=== PATIENT | female | born 1965 | race Caucasian/White ===

== ENCOUNTER 2017-12-22 11:17 | Outpatient (CLI) | payer OTHER ==
[2016-02-13 11:02] VITALS: BMI 42.0
--- NOTE | 2017-12-22 11:34 | DI ---
EXAM: Two views of the left elbow. History: Left elbow pain. Findings: No acute fracture or dislocation. No abnormal calcifications or radiopaque foreign bodies . Mild to moderate narrowing of the left elbow joint. Tiny olecranon enthesiophyte Impression: 1. No acute osseous abnormality. 2. 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
== END 2017-12-22 11:18 | disposition home or self-care (01) ==
LOC: RAD 11:17
PROVIDERS: ATTEND Family Medicine
DX: M25.522 Pain in left elbow (principal); M77.10 Lateral epicondylitis, unspecified elbow

== ENCOUNTER 2017-12-25 12:23 | Outpatient (CLI) ==
[2016-02-13 11:02] VITALS: BMI 42.0
--- NOTE | 2017-12-27 09:07 | MAMMO ---
EXAM: Bilateral digital screening mammogram (2-D and 3-D) History: Baseline screening Findings: MLO and CC views of bilateral breasts demonstrate scattered fibroglandular breast parenchy ma. CAD was reviewed by the radiologist. Tomosynthesis was performed. There are no dominant masses , no suspicious microcalcifications and no architectural distortions Impression: Negative mammogram. Recommend followup routine screening mammography in 1 year. BIRADS 1
== END 2017-12-25 12:24 | disposition home or self-care (01) ==
LOC: RAD 12:23
PROVIDERS: ATTEND Family Medicine
DX: Z12.31 Encounter for screening mammogram for malignant neoplasm of breast (principal)
CPT/HCPCS: 77067

== ENCOUNTER 2018-01-24 15:18 | Outpatient (CLI) ==
[2016-02-13 11:02] VITALS: BMI 42.0
== END 2018-01-24 15:19 | disposition home or self-care (01) ==
LOC: CAR 15:18
PROVIDERS: ATTEND Family Medicine
DX: G47.33 Obstructive sleep apnea (adult) (pediatric) (principal)

== ENCOUNTER 2018-02-13 16:08 | Outpatient (CLI) ==
[2016-02-13 11:02] VITALS: BMI 42.0
== END 2018-02-13 16:09 | disposition home or self-care (01) ==
LOC: CAR 16:08
PROVIDERS: ATTEND Psychiatry & Neurology Sleep Medicine
DX: G47.33 Obstructive sleep apnea (adult) (pediatric) (principal)
CPT/HCPCS: 95811

== ENCOUNTER 2019-01-05 13:40 | Emergency (ER) | payer OTHER ==
[2019-01-05 13:49] VITALS: BP 145/90; TEMP 98.9; BMI 46.2
[2019-01-05] MEDS ORDERED: DECADRON 4 MG/ML SDV IM STA (14:32)
--- NOTE | 2019-01-05 14:35 | ED.PDOC ---
General ED Provider: Dr. SHAY DUNBAR Chief Complaint: Rash Stated Complaint: rash Time Seen by Physician: 13:49 (seen with her nurse ) Mode of Arrival: Walk-In Information Source: Patient Exam Limitations: No limitations Primary Care Provider: TALHA WOODWARD Nursing and Triage Documentation Reviewed and Agree: Yes Does patient meet sepsis criteria?: No System Inflammatory Response Syndrome: Not Applicable Sepsis Protocol: For patient's 13 years and over: Temp is 96.8 and below OR 101 and greater Pulse >90 BPM Resp >20/minute Acutely Altered Mental Status Are patient's symptoms suggestive of a new infection, such as: -Pneumonia -Skin, Soft Tissue -Endocarditis -UTI -Bone, Joint Infection -Implantable Device -Acute Abdominal Infection -Wound Infection -Meningitis -Blood Stream Catheter Infection -Unknown Skin Complaint Exam - Skin Rash/Itching Complaint/Exam Onset/Duration: 1 day Symptoms Are: Still present Initial Severity: Mild Current Severity: Mild Potential Exposures: Reports: Plants Aggravating: Reports: None Alleviating: Reports: None Associated Signs and Symptoms: Denies: Difficulty breathing, Fever, Chills Skin Findings: Present: Vesicles Differential Diagnoses: Poison Lakshmi/Coolidge Review of Systems - Review Of Systems Constitutional: Reports: No symptoms Eyes: Reports: No symptoms Ears, Nose, Mouth, Throat: Reports: No symptoms Respiratory: Reports: No symptoms Cardiac: Reports: No symptoms GI: Reports: No symptoms : Reports: No symptoms Musculoskeletal: Reports: No symptoms Skin: Reports: Rash (vesicular right ext) Neurological: Reports: No symptoms Endocrine: Reports: No symptoms Hematologic/Lymphatic: Reports: No symptoms All Other Systems: Reviewed and Negative Past Medical History - Past Medical History Previously Healthy: Yes Endocrine: Reports: None Cardiovascular: Reports: Hypertension Respiratory: Reports: None Hematological: Reports: None Gastrointestinal: Reports: None Genitourinary: Reports: None Neuro/Psych: Reports: Depression Musculoskeletal: Reports: Joint Pain Cancer: Reports: None Last Menstrual Period: HAS HAD A HYSTERECTOMY - Surgical History General Surgical History: Reports: , Tonsillectomy, Orthopedic - Family History Family History: Reports: None - Social History Smoking Status: Never smoker Hx Substance Use: No Alcohol Screening: None - Immunizations Tetanus Shot up to Date: Yes Physical Exam - Physical Exam Appearance: Well-appearing, No pain distress, Well-nourished Eyes: MATEO, EOMI, Conjunctiva clear ENT: Ears normal, Nose normal, Oropharynx normal Respiratory: Airway patent, Breath sounds clear, Breath sounds equal, Respirations nonlabored Cardiovascular: RRR, Pulses normal, No rub, No murmur GI/: Soft, Nontender, No masses, Bowel sounds normal, No Organomegaly Musculoskeletal: Normal strength, ROM intact, No edema, No calf tenderness Skin: Warm, Dry (rash see photos) Neurological: Sensation intact, Motor intact, Reflexes intact, Cranial nerves intact, Alert, Oriented Psychiatric: Affect appropriate, Mood appropriate Critical Care Note - Critical Care Note Total Time (mins): 0 Course - Course Orders, Labs, Meds: Orders Category Date Time Status Dexamethasone 4 mg/ml Inj [Decadron 4 mg/ml Sdv] MEDS 01/05/19 14:32 Stat 4 mg IM ONCE STA Medications Generic Name Dose Route Start Last Admin Trade Name Freq PRN Reason Stop Dose Admin Dexamethasone Sodium Phosphate 4 mg 01/05/19 14:32 Decadron 4 Mg/Ml Sdv IM 01/05/19 14:33 ONCE STA Vital Signs: Temp Pulse Resp BP Pulse Ox 01/05/19 13:41 98.9 F 82 20 145/90 H 98 Departure - Departure Time of Disposition: 14:35 Disposition: HOME SELF-CARE Discharge Problem: Pruritic rash, Poison lakshmi Instructions: Poison Lakshmi (ED) Condition: Good Pt referred to PMD for follow-up: Yes IPMP verified?: No Additional Instructions: Please call your Family Physician as soon as possible to schedule a follow-up appointment. Allergies/Adverse Reactions: Allergies polyethylene glycol [From Golytely] Adverse Reaction (Verified 01/05/19 13:49) polyethylene glycol 3350 [From Golytely] Adverse Reaction (Verified 01/05/19 13: 49) potassium chloride [From Golytely] Adverse Reaction (Verified 01/05/19 13:49) sodium [From Golytely] Adverse Reaction (Verified 01/05/19 13:49) sodium bicarbonate [From Golytely] Adverse Reaction (Verified 01/05/19 13:49) sodium chloride [From Golytely] Adverse Reaction (Verified 01/05/19 13:49) sodium sulfate [From Golytely] Adverse Reaction (Verified 01/05/19 13:49) Sulfa (Sulfonamide Antibiotics) Adverse Reaction (Verified 01/05/19 13:49) aspertaime Adverse Reaction (Uncoded 01/05/19 13:49) Home Medications: Ambulatory Orders Bupropion HCl [Bupropion HCl Sr] 150 mg PO TID 05/02/15 Loratadine 10 mg PO BID 05/02/15 Albuterol Sulfate [Proventil Hfa] 6.7 gm IH BID PRN 01/19/18 Baclofen 10 mg PO TID 01/19/18 Cranberry Fruit Extract [Cranberry] 500 mg PO BID 01/19/18 Fluticasone Propionate [Flovent Diskus] 250 mcg IH BID 01/19/18 Nitroglycerin 0.4 mg SL DIRECTED PRN 01/19/18 Pantoprazole Sodium [Protonix] 40 mg PO DAILY 01/19/18 Zolpidem Tartrate [Ambien] 10 mg PO BEDTIME 01/19/18 Calcium Carb/D3/Magnesium/Zinc [Sv Burntny-Eho-Tblm-Vit D Cplt] 2 each PO BID Calcium Carbonate/Vitamin D3 [Calcium 600 + Vit D Caplet] 1 each PO BID Potassium Gluconate [Potassium] 600 mg PO BID 01/05/19
== END 2019-01-05 14:58 | disposition home or self-care (01) ==
LOC: ED 13:40
DX: L23.7 Allergic contact dermatitis due to plants, except food (principal)
CPT/HCPCS: 96372; 99282

== ENCOUNTER 2024-06-07 11:29 | Observation (INO) ==
--- NOTE | 2024-06-07 11:40 | ED.PDOC ---
General ED Provider: Dr. KELY RAMIREZ MD Chief Complaint: Shortness of Air Stated Complaint: Patient is a 59-year-old female that reported to the emergency department via EMS for shortness of breath and a cough x 3 days. Patient stated that she is also had a fever of 102 Fahrenheit with the symptoms. Patient stated that she has been coughing so much that she has had blood-tinged yellowish sputum. Patient stated that she does have a history of COPD. Patient stated that she has not been around any other sick contacts. Patient stated that she is also had some nausea and vomiting with her symptoms. Patient stated that she has not traveled outside the country. Patient stated that she has had the similar symptoms before and had bacterial pneumonia. Patient stated that she has not been seen by a primary care physician for these current symptoms. Patient stated that she is not currently on home O2. Patient denied anything making her symptoms worse or better. Patient did however state that [id number] Tylenol has helped with her fever. Patient denies any other acute symptoms not currently mentioned in the HPI. Patient has past medical history of COPD, hypertension, morbid obesity. Patient's vital signs are blood pressure 130/79, heart rate 120, respiratory rate 22, temperature 99.2 F, O2 on 2 L nasal cannula is 97%. Patient's GCS is 15. Time Seen by Provider: 06/07/24 11:36 Mode of Arrival: Ambulance Information Source: Patient and EMT Exam Limitations: No limitations Primary Care Provider: TALHA WOODWARD Nursing and Triage Documentation Reviewed and Agree: Yes Does Patient Take Opioids?: No Is Patient Opioid Naive?: No What is Opioid Naive?: *Opioid Naive implies the patient is not already taking opioids or not chronically receiving opioids on a daily basis. *PRN dosing is not "usually" associated with tolerance. *Patients are at higher risk of over-sedation and aspiration. Is Patient Opioid Tolerant?: No What is Opioid Tolerant?: *Opioid Tolerance implies less than the expected response to an opioid. *Acquired tolerance is defined by the patient taking 60mg of oral morphine daily (or equianalgesic dose of another opioid) for 1 week or more. *Often associated with chronic pain. *May take more than usual dose to achieve desired pain control. Review of Systems Review Of Systems Constitutional: Reports No symptoms Eyes: Reports No symptoms Ears, Nose, Mouth, Throat: Reports No symptoms Respiratory: Reports Cough and Shortness of Breath Cardiac: Reports No symptoms GI: Reports No symptoms : Reports No symptoms Musculoskeletal: Reports No symptoms Skin: Reports No symptoms Neurological: Reports No symptoms Endocrine: Reports No symptoms Hematologic/Lymphatic: Reports No symptoms All Other Systems: Reviewed and Negative [facility] Social History Smoking and tobacco status: Never smoker Alcohol intake: never Substance use type: does not use Surgical History 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 (ICD-10) Status post bariatric surgery Z98.84 - Bariatric surgery status (ICD-10) Female Reproductive History Menstrual Hx Hysterectomy: Yes Hx Tubal Ligation: No Physical Exam Physical Exam Appearance: Reports Well-appearing, No pain distress and Well-nourished Ill-appearing: None Pain Distress: None Eyes: Reports MATEO, EOMI and Conjunctiva clear ENT: Reports Nose normal and Oropharynx normal Neck: Supple Respiratory: Reports Airway patent, Breath sounds equal, Breath sounds diminished (Breath sounds diminished bilaterally in the lower lung klein.) and Respirations nonlabored Cardiovascular: Reports Pulses normal, No rub, No murmur and Tachycardia (Patient slightly tachycardic with an apical pulse of 115 bpm.) GI/: Reports Soft, Nontender, No masses, Bowel sounds normal and No Organomegaly Musculoskeletal: Reports Normal strength, ROM intact and No edema Skin: Reports Warm, Dry and Normal color Neurological: Reports Sensation intact, Motor intact, Cranial nerves intact, Alert and Oriented Psychiatric: Reports Affect appropriate and Mood appropriate Course Course 06/07/24 12:07 06/07/24 12:07 Orders, Labs, Meds: Lab Review 06/07/24 06/07/24 06/07/24 12:07 12:10 12:28 WBC 15.10 H RBC 3.83 L Hgb 10.0 L Hct 33.7 L MCV 88.0 MCH 26.1 L MCHC 29.7 L RDW Coeff of Earnestine 15.3 H Plt Count 265 Immature Gran % (Auto) 0.7 Neut % (Auto) 90.1 H Lymph % (Auto) 3.8 L [place] % (Auto) 4.5 Eos % (Auto) 0.8 Baso % (Auto) 0.1 Neut # (Auto) 13.6 H Lymph # (Auto) 0.6 [place] # (Auto) 0.7 Eos # (Auto) 0.1 Baso # (Auto) 0.0 Immature Gran # (Auto) 0.1 ESR 16 PT 10.1 INR 0.97 VBG pH 7.43 H VBG pCO2 41 VBG pO2 27 L VBG HCO3 27.2 H VBG O2 Saturation 52.7 L Sodium 140.1 Potassium 4.80 Chloride 105.4 Carbon Dioxide 26.6 Anion Gap 12.90 BUN 16.4 Creatinine 0.83 Estimated GFR (MDRD) 70.00 BUN/Creatinine Ratio 19.75 Glucose 114.2 H Lactic Acid 1.67 Calcium 8.31 L Total Bilirubin 0.49 AST 48.3 H ALT 33.5 Alkaline Phosphatase 90.7 Troponin I < 0.012 Total Protein 6.15 L Albumin 3.70 Globulin 2.45 Albumin/Globulin Ratio 1.51 Procalcitonin 0.08 D-Dimer 1550.07 H Urine Color Urine Clarity Urine pH Ur Specific Lamont Urine Protein Urine Glucose (UA) Urine Ketones Urine Blood Urine Nitrite Urine Bilirubin Urine Urobilinogen Ur Leukocyte Esterase Influ A Molecular Assay Negative by naat Influ B Molecular Assay Negative by naat RSV Antigen Negative by naat SARS CoV-2 RNA Rapid ADENIKE Negative 06/07/24 13:15 WBC RBC Hgb Hct MCV MCH MCHC RDW Coeff of Earnestine Plt Count Immature Gran % (Auto) Neut % (Auto) Lymph % (Auto) [place] % (Auto) Eos % (Auto) Baso % (Auto) Neut # (Auto) Lymph # (Auto) [place] # (Auto) Eos # (Auto) Baso # (Auto) Immature Gran # (Auto) ESR PT INR VBG pH VBG pCO2 VBG pO2 VBG HCO3 VBG O2 Saturation Sodium Potassium Chloride Carbon Dioxide Anion Gap BUN Creatinine Estimated GFR (MDRD) BUN/Creatinine Ratio Glucose Lactic Acid Calcium Total Bilirubin AST ALT Alkaline Phosphatase Troponin I Total Protein Albumin Globulin Albumin/Globulin Ratio Procalcitonin D-Dimer Urine Color Yellow Urine Clarity Clear Urine pH 5.5 Ur Specific Lamont >=1.030 Urine Protein Negative Urine Glucose (UA) Negative Urine Ketones Negative Urine Blood Negative Urine Nitrite Negative Urine Bilirubin Negative Urine Urobilinogen 0.2 Ur Leukocyte Esterase Negative Influ A Molecular Assay Influ B Molecular Assay RSV Antigen SARS CoV-2 RNA Rapid ADENIKE Orders Category Date Time Status EKG-(ED ONLY) Stat CARDIO 06/07/24 11:44 Completed NEBULIZER TREATMENT Stat CARDIO 06/07/24 11:40 Completed NPO REMINDER: IMAGING ONCE CARE 06/07/24 13:08 Completed ED APPLY O2 .ONCE EMERGENCY 06/07/24 11:37 Active ED DOOR ASSEMBLER APPLIED .ONCE EMERGENCY 06/07/24 11:37 Active ED IV/MEDIPORT/POWERPORT .ONCE EMERGENCY 06/07/24 11:37 Active ED VITAL SIGNS .ONCE EMERGENCY 06/07/24 11:37 Active BLOOD CULTURE (ED ONLY) Stat LAB 06/07/24 12:42 Received C-REACTIVE PROTEIN Stat LAB 06/07/24 12:07 Received CBC W/ AUTO DIFF Stat LAB 06/07/24 12:07 Completed COMPREHENSIVE METABOLIC PANEL Stat LAB 06/07/24 12:07 Completed D-DIMER Stat LAB 06/07/24 12:07 Completed ESR Stat LAB 06/07/24 12:07 Completed FLU A/B MOLECULAR Stat LAB 06/07/24 12:10 Completed LACTIC ACID Stat LAB 06/07/24 12:07 Completed MRSA SCREEN Routine LAB 06/07/24 12:10 Received PROCALCITONIN Stat LAB 06/07/24 12:07 Completed PT WITH INR Stat LAB 06/07/24 12:07 Completed RSV Stat LAB 06/07/24 12:10 Completed SARS COV-2 RNA RAPID ADENIKE Stat LAB 06/07/24 12:10 Completed SPUTUM CULTURE Stat LAB 06/07/24 12:48 Received TROPONIN I Stat LAB 06/07/24 12:07 Completed URINALYSIS C & S IF INDICATED Stat LAB 06/07/24 13:15 Completed VBG [VENOUS BLOOD GAS] Stat LAB 06/07/24 12:28 Completed 0.9 % Sodium Chloride [Saline Flush] Meds 06/07/24 11:36 Active 1 syr IVF PRN PRN Iohexol [Omnipaque 350 mg/ml 100Ml] Meds 06/07/24 13:41 Discontinued 100 ml IVP ONCE ONE Ipratropium/Albuterol Neb [Duoneb] Meds 06/07/24 11:40 Discontinued 3 ml NEB ONCE STA Methylprednisolone Sod Succ/Pf [Solu-Medrol 125 mg] Meds 06/07/24 11:40 Discontinued 125 mg IVP ONCE ONE Piperacillin Sodium/Tazobactam [Zosyn 4.5 gm] 4.5 gm Meds 06/07/24 12:48 Discontinued 0.9 % Sodium Chloride [Sodium Chloride 100Ml] 100 ml IV ONCE Sodium Chloride 0.9% [Sodium Chloride] 1,000 ml Meds 06/07/24 11:36 Discontinued IV BOLUS Vancomycin/Water For Inj (Peg) [Vancomycin 1.5 Gram/300 Meds 06/07/24 12:48 Discontinued ml Premix] 1.5 gm in 300 ml IV ONCE CHEST, 1V AP ONLY Stat RADS 06/07/24 11:36 Completed CTA CHEST PE PROTOCOL Stat RADS 06/07/24 13:08 Completed Medications Generic Name Dose Route Start Last Admin Trade Name Freq PRN Reason Stop Dose Admin Sodium Chloride 1 syr 06/07/24 11:36 0.9% Sodium Chloride 10 Ml Disp.Syrin IVF PRN PRN To flush IV Discontinued Medications Generic Name Dose Route Start Last Admin Trade Name Freq PRN Reason Stop Dose Admin Albuterol/Ipratropium 3 ml 06/07/24 11:40 06/07/24 12:32 Ipratropium/Albuterol Vial.Neb NEB 06/07/24 11:41 3 ml ONCE STA Administration Sodium Chloride 1,000 mls @ 1,000 mls/hr 06/07/24 11:36 06/07/24 12:02 Sodium Chloride IV 06/07/24 12:35 1,000 mls/hr BOLUS ONE Administration VANCOMYCIN/WATER FOR INJ (PEG) 1.5 gm in 300 mls @ 200 mls/hr 06/07/24 12:48 06/07/24 14:29 Vancomycin 1.5 Gram/300 Ml Premix IV 06/07/24 14:17 200 mls/hr ONCE ONE Administration Piperacillin Sod/Tazobactam 100 mls @ 200 mls/hr 06/07/24 12:48 06/07/24 13:06 Sod 4.5 gm/ Sodium Chloride IV 06/07/24 13:17 200 mls/hr ONCE ONE Administration Iohexol 100 ml 06/07/24 13:41 06/07/24 13:52 Iohexol 350 Mg/Ml 100ml IVP 06/07/24 13:42 100 ml ONCE ONE Administration Methylprednisolone Sodium Succinate 125 mg 06/07/24 11:40 06/07/24 12:03 Methylprednisolone Sod Succ/Pf 125 Mg/2 Ml Vial IVP 06/07/24 11:41 125 mg ONCE ONE Administration Vital Signs: Temp Pulse Resp BP Pulse Ox O2 Flow Rate 06/07/24 13:31 104 H 18 135/77 95 2 06/07/24 12:14 2 06/07/24 11:31 99.2 F 115 H 17 130/79 97 Discharge Plan Discharge Patient Disposition: PLACED OBSERVATION Discharge Problem: Acute hypoxemic respiratory failure, Acute exacerbation of chronic obstructive pulmonary disease (COPD) Sepsis Qualifiers: Sepsis type: sepsis due to unspecified organism Sepsis acute organ dysfunction status: with acute organ dysfunction Severe sepsis acute organ dysfunction type: acute respiratory failure Acute respiratory failure type: with hypoxia Severe sepsis shock status: without septic shock Qualified Code(s): A41.9 - Sepsis, unspecified organism Bilateral pneumonia Qualifiers: Pneumonia type: due to unspecified organism Lung location: lower lobe of lung Q ualified Code(s): J18.9 - Pneumonia, unspecified organism Did you review [place] [employer] for ALL controlled substances?: Not Applicable ED Provider: KELY RAMIREZ Condition: Stable Physician Progress Note: Patient is a 59-year-old female that reported to the emergency department via EMS for shortness of breath and a cough x 3 days. Patient stated that she is also had a fever of 102 Fahrenheit with the symptoms. Patient stated that she has been coughing so much that she has had blood-tinged yellowish sputum. Patient stated that she does have a history of COPD. Patient stated that she has not been around any other sick contacts. Patient stated that she is also had some nausea and vomiting with her symptoms. Patient stated that she has not traveled outside the country. Patient stated that she has had the similar symptoms before and had bacterial pneumonia. Patient stated that she has not been seen by a primary care physician for these current symptoms. Patient stated that she is not currently on home O2. Patient denied anything making her symptoms worse or better. Patient did however state that [id number] Tylenol has helped with her fever. Patient denies any other acute symptoms not currently mentioned in the HPI. Patient has past medical history of COPD, hypertension, morbid obesity. Patient's vital signs are blood pressure 130/79, heart rate 120, respiratory rate 22, temperature 99.2 F, O2 on 2 L nasal cannula is 97%. Patient's GCS is 15. -Will order chest x-ray, baseline labs, DuoNeb treatment, IV normal saline 1 L bolus for dehydration, IV methylprednisolone 125 mg. -Will continue oxygen 2 L nasal cannula to keep patient's O2 sat above 94%. -EKG shows sinus tachycardia with a rate of 808 bpm. Normal axis noted. No acute ST elevations noted. This was interpreted by the ER physician. -Staff was unable to get an ABG so they obtained an VBG which showed a pH of 7.43, pCO2 41, pO2 27, and bicarb 27.2. -CMP is unremarkable. CBC shows patient has a 15,000 white count. -Patient has a 1500 D-dimer. Will order CTA PE protocol to rule out pulmonary embolism. -Chest x-ray shows a right sided lower lobe pneumonia. Possible left lobe pneumonia. This was interpreted by the ER physician. -Will treat patient's pneumonia with IV vancomycin 1.5 g and IV Zosyn 4.5 g. -Spoke to Forrest May NP who is the hospitalist here at [facility] about admitting this patient for COPD exacerbation with community- acquired pneumonia. I gave her the current lab values, radiograph findings, and treatment to current time. She agrees to admit the patient after the D-dimer comes back in case the patient needs a CTA chest to rule out PE. -CTA of the chest shows No evidence of central pulmonary embolism as described. Limited visualization of the segmental and subsegmental pulmonary arteries secondary to motion artifact and small peripheral pulmonary emboli cannot be excluded. Bilateral pneumonia. Cardiomegaly. -Patient will be admitted to the hospital for observation. At time of admission patient is stable.
[2024-06-07] MEDS: SODIUM CHLORIDE 1,000 ML IV ONE (12:02)
[2024-06-07] MEDS: SOLU-MEDROL 125 MG IVP ONE (12:03)
[2024-06-07 12:29] LABS: ALANINE AMINOTRANSFERASE 33.5 U/L (0-35); ALKALINE PHOSPHATASE 90.7 U/L (53-141); ASPARTATE AMINO TRANSFERASE 48.3 U/L (14-36); BILIRUBIN,TOTAL 0.49 mg/dL (0.2-1.3); BLOOD UREA NITROGEN 16.4 mg/dL (7-17); CALCIUM 8.31 mg/dL (8.4-10.2); CARBON DIOXIDE 26.6 mmol/L (22-30.0); CHLORIDE 105.4 mmol/L (98-107); CREATININE 0.83 mg/dL (0.60-1.30); GLUCOSE 114.2 mg/dL (74-106); SODIUM 140.1 mmol/L (134.5-145); TOTAL PROTEIN 6.15 g/dL (6.3-8.2)
[2024-06-07 12:31] LABS: BASOPHILS % (AUTO) 0.1 % (0.0-3.0); EOSINOPHILS # (AUTO) 0.1 K/ul (0.0-0.7); EOSINOPHILS % (AUTO) 0.8 % (0.0-7.0); HEMATOCRIT 33.7 % (37.0-47.0); IMMATURE GRANULOCYTE # (AUTO) 0.1 (0.0-1.0); IMMATURE GRANULOCYTE % (AUTO) 0.7 % (0.0-5.0); LYMPHOCYTES # (AUTO) 0.6 K/uL (0.60-3.4); LYMPHOCYTES % (AUTO) 3.8 (10.0-50.0); MEAN CORPUSCULAR HEMOGLOBIN 26.1 pg (27.0-31.0); MEAN CORPUSCULAR HGB CONC 29.7 (31.8-35.4); MONOCYTES # (AUTO) 0.7 K/uL (0.4-2.0); MONOCYTES % (AUTO) 4.5 (0-10); NEUTROPHILS # (AUTO) 13.6 K/ul (2.0-6.9); NEUTROPHILS % (AUTO) 90.1 % (42.2-75.2); PLATELET COUNT 265 10^3/uL (140-440); RDW COEFFICIENT OF VARIATION 15.3 % (11.6-14.8); RED BLOOD COUNT 3.83 10^6/ul (4.20-5.40)
[2024-06-07] MEDS: DUONEB NEB STA (12:32)
[2024-06-07 12:33] LABS: PROTHROMBIN TIME 10.1 SEC (9.3-11.0)
[2024-06-07 12:42] LABS: MOLECULAR FLU A NEGATIVE BY NAAT (NEGATIVE); MOLECULAR FLU B NEGATIVE BY NAAT (NEGATIVE); RSV MOLECULAR NEGATIVE BY NAAT (NEGATIVE); SARS COV-2 RNA RAPID NAAT NEGATIVE (NEGATIVE)
[2024-06-07 12:42] LABS: TROPONIN I < 0.012 ng/ml (0.0000-0.120)
[2024-06-07 13:00] LABS: VBG PH 7.43 (7.30-7.40)
[2024-06-07 13:01] LABS: VBG HCO3 27.2 (22-26); VBG OXYGEN SATURATION 52.7 (60-80)
[2024-06-07] MEDS: ZOSYN 4.5 GM 4.5 GM in SODIUM CHLORIDE 100ML 100 ML IV ONE (13:06)
--- NOTE | 2024-06-07 13:10 | DI ---
EXAM: CHEST ONE-VIEW HISTORY: Shortness of breath COMPARISON: AP chest from 06/07/2021 FINDINGS: The heart size is prominent. The pulmonary vasculature is accentuated there are interst itial and alveolar opacities in the right upper lobe and both lower lobes. No pneumothoraces or pleu ral effusions. ACDF is noted. IMPRESSION: 1. Multifocal pneumonia versus pulmonary edema. 2. Cardiomegaly. .
[2024-06-07 13:34] LABS: BILIRUBIN,URINE Negative (NEGATIVE); CLARITY,URINE Clear (CLEAR); COLOR,URINE Yellow (YELLOW); GLUCOSE, URINE (UA) Negative (NEGATIVE); KETONES,URINE Negative (NEGATIVE); LEUKOCYTE ESTERASE ,URINE Negative (NEGATIVE); NITRITE,URINE Negative (NEGATIVE); PH,URINE 5.5 (5-9); PROTEIN,URINE Negative (NEGATIVE); URINE, BLOOD Negative (NEGATIVE); UROBILINOGEN,URINE 0.2 (0.2)
[2024-06-07] MEDS: OMNIPAQUE 350 MG/ML 100ML IVP ONE (13:52)
[2024-06-07 14:18] LABS: ERYTHROCYTE SEDIMENTATION RATE 16 mm/hr (0-20)
[2024-06-07] MEDS: VANCOMYCIN 1.5 GRAM/300 ML PREMIX 1.5 GM/300 ML BAG IV ONE (14:29)
--- NOTE | 2024-06-07 14:46 | CT ---
EXAM: CT PULMONARY ANGIOGRAM WITH IV CONTRAST. HISTORY: Shortness of breath with elevated D-dimer. PROCEDURE: After the intravenous injection of contrast a CT pulmonary angiogram was performed with c ontiguous axial CT images of the chest with multiplaner reformats, MIP images and 3-D reformats. COMPARISON: CT chest of 10/31/2023. FINDINGS: There is motion artifact which limits the exam. There is normal enhancement of the pulmon dana trunk, main right and left pulmonary arteries and lobar pulmonary arteries. There is limited vis ualization of the segmental and subsegmental pulmonary arteries secondary to motion artifact and smal l peripheral pulmonary emboli cannot be excluded. The heart is enlarged. The thoracic aorta is with in normal limits in size. There are diffuse infiltrates and patchy areas of consolidation, consisten t with pneumonia. There are degenerative changes in the spine. Impression: No evidence of central pulmonary embolism as described. Limited visualization of the seg mental and subsegmental pulmonary arteries secondary to motion artifact and small peripheral pulmonar y emboli cannot be excluded. Bilateral pneumonia as described. Cardiomegaly. All CT scans are performed using dose optimization techniques as appropriate to the performed exam an d include at least one of the following: Automated exposure control, adjustment of the mA and/or kV according t o size, and the use of iterative reconstruction technique.
[2024-06-07] MEDS: TYLENOL PO STA (14:56)
--- NOTE | 2024-06-07 16:21 | PCM ---
Date of Service Date Seen by Provider: 06/07/24 Time Seen by Provider: 16:10 Admit Day/Time Admission Date: 06/07/24 Reason for Admission Chief Complaint: ACUTE HYPOXEMIC RESP FAILURE,SEPSIS,BILATREAL Hospital Provider Hospital Provider: CLARISSE DANG MD, [facility] Primary Care Physician Primary Care Physician: TALHA WOODWARD History of Present Illness History of Present Illness: 59 yo female presented to the ER with complaints of weakness, fever, cough, and shortness of breath x 3 days. Has pmh of asthma, htn, gerd, anxiety/depression. States that she has had a fever as high as 102 and can't seem to get better. Cough is productive with yellow-brown sputum. SOB is worse on exertion. O2 sat was in upper 80s in ER upon arrival, Placed on 2L and sat upper 90s now. Admitted to med/surg observation for bilateral pneumonia Case Discussed With Case Discussed With: Patient's case was discussed with the ER Physicians, Dr. Rodriguez. 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 (ICD-10) Status post bariatric surgery Z98.84 - Bariatric surgery status (ICD-10) Social History Smoking and tobacco status: Never smoker Alcohol intake: never Substance use type: does not use Allergies Allergies Allergy/AdvReac Type Severity Reaction Status Date / Time diphenhydramine AdvReac restless Verified 06/07/24 11:53 [From Benadryl] legs polyethylene glycol AdvReac Vomiting Verified 06/07/24 11:53 [From Golytely] polyethylene glycol 3350 AdvReac Vomiting Verified 06/07/24 11:53 [From Golytely] potassium chloride AdvReac Vomiting Verified 06/07/24 11:53 [From Golytely] sodium [From Golytely] AdvReac Vomiting Verified 06/07/24 11:53 sodium bicarbonate AdvReac Vomiting Verified 06/07/24 11:53 [From Golytely] sodium chloride AdvReac Vomiting Verified 06/07/24 11:53 [From Golytely] sodium sulfate AdvReac Vomiting Verified 06/07/24 11:53 [From Golytely] Sulfa (Sulfonamide AdvReac Verified 06/07/24 11:53 Antibiotics) aspertaime AdvReac Uncoded 06/07/24 11:53 Current Medications Home Medications bupropion HCl (smoking deter) 150 mg tablet,12 hr sustained-release(smoking deterrent) 150 mg PO TID 05/02/15 [History Confirmed 06/07/24 Last Taken 05/02/15] albuterol sulfate 90 mcg/actuation aerosol inhaler (Proventil HFA) 6.7 g inhalation BID PRN WHEEZING /SOB 01/19/18 [History Confirmed 06/07/24 Last Taken Unknown] pantoprazole 40 mg tablet,delayed release (Protonix) 40 mg PO DAILY 01/19/18 [History Confirmed 06/07/24 Last Taken Unknown] calcium 600 mg (as carbonate)-vitamin D3 10 mcg (400 unit) tablet 1 ea PO BID 01/05/19 [History Confirmed 06/07/24 Last Taken Unknown] gabapentin 300 mg capsule 800 mg PO QID 06/07/21 [History Confirmed 06/07/24 Last Taken Unknown] meloxicam 7.5 mg tablet 7.5 mg PO DAILY 06/07/21 [History Confirmed 06/07/24 Last Taken Unknown] potassium chloride 10 mEq capsule,extended release 20 meq PO DAILY 06/07/21 [History Confirmed 06/07/24 Last Taken Unknown] bupropion HCl 150 mg tablet,12 hr sustained-release 150 mg PO TID 10/31/23 [Hist ory Confirmed 06/07/24 Last Taken Unknown] buspirone 10 mg tablet 10 mg PO DAILY 10/31/23 [History Confirmed 06/07/24 Last Taken Unknown] duloxetine 60 mg capsule,delayed release 60 mg PO DAILY 10/31/23 [History Confirmed 06/07/24 Last Taken Unknown] losartan 25 mg tablet 25 mg PO BEDTIME 10/31/23 [History Confirmed 06/07/24 Last Taken Unknown] oxycodone-acetaminophen 5 mg-325 mg tablet 1 tab PO TID 10/31/23 [History Confirmed 06/07/24 Last Taken Unknown] quetiapine 25 mg tablet 75 mg PO BEDTIME 10/31/23 [History Confirmed 06/07/24 Last Taken Unknown] diclofenac sodium 1 % topical gel 2 g topical QID #100 grams 01/14/24 [Rx Confirmed 06/07/24 Last Taken Unknown] bumetanide 1 mg tablet 1 mg PO BID 06/07/24 [History Confirmed 06/07/24 Last Taken Unknown] eszopiclone 2 mg tablet 2 mg PO BEDTIME 06/07/24 [History Confirmed 06/07/24 Last Taken Unknown] ferrous sulfate 325 mg (65 mg iron) tablet (Feosol) 325 mg PO BEDTIME 06/07/24 [History Confirmed 06/07/24 Last Taken Unknown] fluticasone furoate 100 mcg/actuation blister powder for inhalation (Arnuity Ellipta) 2 inh inhalation DAILY 06/07/24 [History Confirmed 06/07/24 Last Taken Unknown] fluticasone propionate 50 mcg/actuation nasal spray,suspension 1 spray intranasal DAILY 06/07/24 [History Confirmed 06/07/24 Last Taken Unknown] lidocaine 4 % topical patch (AsperFlex (lidocaine)) 1 patch topical DAILY PRN Pain to Right Should 06/07/24 [History Confirmed 06/07/24 Last Taken Unknown] montelukast 10 mg tablet 10 mg PO DAILY 06/07/24 [History Confirmed 06/07/24 Last Taken Unknown] quetiapine 50 mg tablet 50 mg PO BEDTIME 06/07/24 [History Confirmed 06/07/24 Last Taken Unknown] Home Acetaminophen (Acetaminophen 325 Mg Tablet) 650 mg PO Q4-6H PRN PRN Reason: Mild/Moderate Pain Albuterol Sulfate (Albuterol Sulfate 0.083% Vial.Neb) 2.5 mg NEB RTQ4H PRN PRN Reason: Wheezing Albuterol/Ipratropium (Ipratropium/Albuterol Vial.Neb) 3 ml NEB RTQ6H HELENA VANCOMYCIN/WATER FOR INJ (PEG) (Vancomycin 1.5 Gram/300 Ml Premix) 1.5 gm in 300 mls @ 200 mls/hr IV Q12HR HELENA Stop: 06/10/24 22:59 CEFEPIME 2 GM/D5W (Maxipime 2 Gm/50 Ml D5w) 2 gm in 50 mls @ 100 mls/hr IV Q8HR HELENA Stop: 06/10/24 20:59 Sodium Chloride (0.9% Sodium Chloride 10 Ml Disp.Syrin) 1 syr IVF PRN PRN PRN Reason: To flush IV Discontinued Medications Acetaminophen (Acetaminophen 500 Mg Tablet) 500 mg PO ONCE STA Stop: 06/07/24 14:50 Last Admin: 06/07/24 14:56 Dose: 500 mg Albuterol/Ipratropium (Ipratropium/Albuterol Vial.Neb) 3 ml NEB ONCE STA Stop: 06/07/24 11:41 Last Admin: 06/07/24 12:32 Dose: 3 ml Sodium Chloride (Sodium Chloride) 1,000 mls @ 1,000 mls/hr IV BOLUS ONE Stop: 06/07/24 12:35 Last Infusion: 06/07/24 13:02 Dose: Infused VANCOMYCIN/WATER FOR INJ (PEG) (Vancomycin 1.5 Gram/300 Ml Premix) 1.5 gm in 300 mls @ 200 mls/hr IV ONCE ONE Stop: 06/07/24 14:17 Last Admin: 06/07/24 14:29 Dose: 200 mls/hr Piperacillin Sod/Tazobactam (Sod 4.5 gm/ Sodium Chloride) 100 mls @ 200 mls/hr IV ONCE ONE Stop: 06/07/24 13:17 Last Admin: 06/07/24 13:06 Dose: 200 mls/hr Iohexol (Iohexol 350 Mg/Ml 100ml) 100 ml IVP ONCE ONE Stop: 06/07/24 13:42 Last Admin: 06/07/24 13:52 Dose: 100 ml Methylprednisolone Sodium Succinate (Methylprednisolone Sod Succ/Pf 125 Mg/2 Ml Vial) 125 mg IVP ONCE ONE Stop: 06/07/24 11:41 Last Admin: 06/07/24 12:03 Dose: 125 mg Opioid Naive vs. Tolerant Does Patient Take Opioids?: Yes Is Patient Opioid Naive?: No What is Opioid Naive?: *Opioid Naive implies the patient is not already taking opioids or not chronically receiving opioids on a daily basis. *PRN dosing is not "usually" associated with tolerance. *Patients are at higher risk of over-sedation and aspiration. Is Patient Opioid Tolerant?: No What is Opioid Tolerant?: *Opioid Tolerance implies less than the expected response to an opioid. *Acquired tolerance is defined by the patient taking 60mg of oral morphine daily (or equianalgesic dose of another opioid) for 1 week or more. *Often associated with chronic pain. *May take more than usual dose to achieve desired pain control. Review of Systems Constitutional: Reports Fever, Fatigue and Weakness Head: Reports Normocephalic Eyes: Reports No symptoms Ears: Reports No symptoms Nose: Reports No symptoms Mouth: Reports No symptoms Throat: Reports No symptoms Cardiovascular: Reports No symptoms Respiratory: Reports Cough (yellow-brown thick sputum) and Shortness of air Gastrointestinal: Reports Nausea Genitourinary: Reports No Symptoms Musculoskeletal: Reports No symptoms Endocrine: Reports No symptoms Hematology: Reports No symptoms Immunology: Reports No symptoms Neurological: Reports No symptoms Psychiatric: Reports No symptoms Physical examination Most Recent Vital Signs: Most Recent Vital Signs Temperature 99.2 F 06/07/24 11:31 Temperature Source Oral 06/07/24 11:31 Pulse Rate 104 H 06/07/24 13:31 Respiratory Rate 18 06/07/24 13:31 Blood Pressure 135/77 06/07/24 13:31 O2 Sat by Pulse Oximetry 95 06/07/24 13:31 Oxygen Flow Rate 2 06/07/24 13:31 Height 5 ft 2 in 06/07/24 11:31 Weight 133.8 kg 06/07/24 11:31 Appearance: Positive No Apparent Distress, Alert and Oriented x3 and Obese Skin: Positive Warm and Good Turgor HEENT: Positive Normocephalic and PERRLA Neck: Positive Supple and Midline Trachea Chest/Lungs: Positive Symmetrical With Equal Breath Sounds and Clear to Auscu ltation Bilaterally (diminished) Heart: Positive RRR and Pulses Normal GI/: Positive Soft, Nontender, Bowel Sounds Normal and No Distention Musculoskeletal: Positive Not Examined Extremities: Positive Intact Peripheral Pulses, Stable Joints Without Laxity and Good ROM in All Joints Neurological: Positive Sensation Intact, Motor intact, Alert, Oriented and Muscle Strength 5/5 in Upper and Lower Extremities Bilaterally Labs This Visit Labs This Visit: Labs This Visit 06/07/24 06/07/24 06/07/24 12:07 12:10 12:28 WBC 15.10 H RBC 3.83 L Hgb 10.0 L Hct 33.7 L MCV 88.0 MCH 26.1 L MCHC 29.7 L RDW Coeff of Earnestine 15.3 H Plt Count 265 Immature Gran % (Auto) 0.7 Neut % (Auto) 90.1 H Lymph % (Auto) 3.8 L [place] % (Auto) 4.5 Eos % (Auto) 0.8 Baso % (Auto) 0.1 Neut # (Auto) 13.6 H Lymph # (Auto) 0.6 [place] # (Auto) 0.7 Eos # (Auto) 0.1 Baso # (Auto) 0.0 Immature Gran # (Auto) 0.1 ESR 16 PT 10.1 INR 0.97 VBG pH 7.43 H VBG pCO2 41 VBG pO2 27 L VBG HCO3 27.2 H VBG O2 Saturation 52.7 L Sodium 140.1 Potassium 4.80 Chloride 105.4 Carbon Dioxide 26.6 Anion Gap 12.90 BUN 16.4 Creatinine 0.83 Estimated GFR (MDRD) 70.00 BUN/Creatinine Ratio 19.75 Glucose 114.2 H Lactic Acid 1.67 Calcium 8.31 L Total Bilirubin 0.49 AST 48.3 H ALT 33.5 Alkaline Phosphatase 90.7 Troponin I < 0.012 Total Protein 6.15 L Albumin 3.70 Globulin 2.45 Albumin/Globulin Ratio 1.51 Procalcitonin 0.08 D-Dimer 1550.07 H Urine Color Urine Clarity Urine pH Ur Specific [place] Urine Protein Urine Glucose (UA) Urine Ketones Urine Blood Urine Nitrite Urine Bilirubin Urine Urobilinogen Ur Leukocyte Esterase Influ A Molecular Assay Negative by naat Influ B Molecular Assay Negative by naat RSV Antigen Negative by naat SARS CoV-2 RNA Rapid ADENIKE Negative 06/07/24 13:15 WBC RBC Hgb Hct MCV MCH MCHC RDW Coeff of Earnestine Plt Count Immature Gran % (Auto) Neut % (Auto) Lymph % (Auto) [place] % (Auto) Eos % (Auto) Baso % (Auto) Neut # (Auto) Lymph # (Auto) [place] # (Auto) Eos # (Auto) Baso # (Auto) Immature Gran # (Auto) ESR PT INR VBG pH VBG pCO2 VBG pO2 VBG HCO3 VBG O2 Saturation Sodium Potassium Chloride Carbon Dioxide Anion Gap BUN Creatinine Estimated GFR (MDRD) BUN/Creatinine Ratio Glucose Lactic Acid Calcium Total Bilirubin AST ALT Alkaline Phosphatase Troponin I Total Protein Albumin Globulin Albumin/Globulin Ratio Procalcitonin D-Dimer Urine Color Yellow Urine Clarity Clear Urine pH 5.5 Ur Specific [place] >=1.030 Urine Protein Negative Urine Glucose (UA) Negative Urine Ketones Negative Urine Blood Negative Urine Nitrite Negative Urine Bilirubin Negative Urine Urobilinogen 0.2 Ur Leukocyte Esterase Negative Influ A Molecular Assay Influ B Molecular Assay RSV Antigen SARS CoV-2 RNA Rapid ADENIKE Imaging Imaging: EXAM: CT PULMONARY ANGIOGRAM WITH IV CONTRAST. HISTORY: Shortness of breath with elevated D-dimer. PROCEDURE: After the intravenous injection of contrast a CT pulmonary angiogram was performed with contiguous axial CT images of the chest with multiplaner reformats, MIP images and 3-D reformats. COMPARISON: CT chest of 10/31/2023. FINDINGS: There is motion artifact which limits the exam. There is normal enhancement of the pulmonary trunk, main right and left pulmonary arteries and lobar pulmonary arteries. There is limited visualization of the segmental and subsegmental pulmonary arteries secondary to motion artifact and small peripheral pulmonary emboli cannot be excluded. The heart is enlarged. The thoracic aorta is within normal limits in size. There are diffuse infiltrates and patchy areas of consolidation, consistent with pneumonia. There are degenerative changes in the spine. Impression: No evidence of central pulmonary embolism as described. Limited visualization of the segmental and subsegmental pulmonary arteries secondary to motion artifact and small peripheral pulmonary emboli cannot be excluded. Bilateral pneumonia as described. Cardiomegaly. EXAM: CHEST ONE-VIEW HISTORY: Shortness of breath COMPARISON: AP chest from 06/07/2021 FINDINGS: The heart size is prominent. The pulmonary vasculature is accentuated there are interstitial and alveolar opacities in the right upper lo be and both lower lobes. No pneumothoraces or pleural effusions. ACDF is noted. IMPRESSION: 1. Multifocal pneumonia versus pulmonary edema. 2. Cardiomegaly. Review Statement Review Statement: I have independently reviewed and interpreted the labs/EKGs/imaging that were ordered by the ER provider. I have reviewed all outside records that are available currently in our EMR including imaging/notes/labs from previous visits. Plan Plan: 1. Sepsis in setting of CAP - Blood cultures pending, vancomycin and cefepime abx coverage 2. Acute Hypoxic Respiratory Failure in setting of CAP - wean oxygen as tolerated, nebs Q6H and prn 3. Bilateral Community Acquired Pneumonia - vanc and cefepime, sputum, MRSA, legionella, and strep pneumo pending 4. Hypertension - chronic, continue home medications 5. CHF - chronic, appears euvolemic, continue bumex bid 6. Anxiety/Depression - chronic, continue home medications DVT Prophylaxis: Ambulation Time Spent: Greater than 80 minutes spent with patient, 50% of the time spent with this patient was devoted to counseling and coordination of care. [facility]in minutes spent discussing advance care planning. Disposition: Admit to: Med/Surg Observation Discussed Plan of Care with Dr. Adalid Dang. Medications Medication Orders: Medications Ordered Category Date Time Status 0.9 % Sodium Chloride [Saline Flush] Meds 06/07/24 11:36 Active 1 syr IVF PRN PRN Acetaminophen [Tylenol] Meds 06/07/24 15:14 Active 650 mg PO Q4-6H PRN Albuterol Sulfate 0.083% Neb [Albuterol 0.083% Neb] Meds 06/07/24 15:14 Active 2.5 mg NEB RTQ4H PRN Cefepime 2 gm/D5w [Maxipime 2 gm/50 ml D5w] Meds 06/07/24 21:00 Active 2 gm in 50 ml IV Q8HR Ipratropium/Albuterol Neb [Duoneb] Meds 06/07/24 18:00 Active 3 ml NEB RTQ6H Vancomycin/Water For Inj (Peg) [Vancomycin 1.5 Gram/300 Meds 06/07/24 23:00 Active ml Premix] 1.5 gm in 300 ml IV Q12HR
[2024-06-07 17:22] VITALS: BMI 54.8
[2024-06-07] MEDS: DUONEB NEB SCH (18:26)
[2024-06-07] MEDS ORDERED: LIDOCAINE OINTMENT 5% TP PRN (19:14)
[2024-06-07] MEDS ORDERED: NYSTOP POWDER TP PRN (19:14)
[2024-06-07] MEDS ORDERED: NON-FORMULARY MEDICATION (Eszopiclone 2 mg tablet) PO SCH (21:00)
[2024-06-07] MEDS: BUSPAR PO SCH (21:12)
[2024-06-07] MEDS: COZAAR PO SCH (21:12)
[2024-06-07] MEDS: MAXIPIME 2 GM/50 ML D5W 2 GM/50 ML BAG IV SCH (21:12)
[2024-06-07] MEDS: SINGULAIR PO SCH (21:13)
[2024-06-07] MEDS: CLARITIN PO SCH (21:13)
[2024-06-07] MEDS: SEROQUEL PO SCH (21:13)
[2024-06-07] MEDS: NEURONTIN PO SCH (21:13)
[2024-06-07] MEDS: FERROUS SULFATE PO SCH (21:13)
[2024-06-07] MEDS: AMBIEN PO PRN (22:11)
[2024-06-07] MEDS: VANCOMYCIN 1.5 GRAM/300 ML PREMIX 1.5 GM/300 ML BAG IV SCH (22:12)
[2024-06-08] MEDS: BUMEX PO SCH (05:39)
[2024-06-08 05:44] LABS: BASOPHILS % (AUTO) 0.1 % (0.0-3.0); HEMATOCRIT 34.9 % (37.0-47.0); HEMOGLOBIN 10.4 g/dl (12.0-16.0); IMMATURE GRANULOCYTE # (AUTO) 0.1 (0.0-1.0); IMMATURE GRANULOCYTE % (AUTO) 0.6 % (0.0-5.0); LYMPHOCYTES # (AUTO) 0.9 K/uL (0.60-3.4); LYMPHOCYTES % (AUTO) 5.9 (10.0-50.0); MEAN CORPUSCULAR HEMOGLOBIN 26.5 pg (27.0-31.0); MEAN CORPUSCULAR HGB CONC 29.8 (31.8-35.4); MEAN CORPUSCULAR VOLUME 88.8 fl (81.0-99.0); MONOCYTES # (AUTO) 0.4 K/uL (0.4-2.0); MONOCYTES % (AUTO) 2.7 (0-10); NEUTROPHILS # (AUTO) 13.6 K/ul (2.0-6.9); NEUTROPHILS % (AUTO) 90.7 % (42.2-75.2); PLATELET COUNT 293 10^3/uL (140-440); RDW COEFFICIENT OF VARIATION 15.3 % (11.6-14.8); RED BLOOD COUNT 3.93 10^6/ul (4.20-5.40); WHITE BLOOD COUNT 14.98 K/ul (4.6-10.2)
[2024-06-08 05:56] LABS: ALBUMIN 3.99 g/dL (3.5-5.0); ALKALINE PHOSPHATASE 95.9 U/L (53-141); ASPARTATE AMINO TRANSFERASE 51.3 U/L (14-36); BILIRUBIN,TOTAL 0.62 mg/dL (0.2-1.3); CALCIUM 8.58 mg/dL (8.4-10.2); CARBON DIOXIDE 26.2 mmol/L (22-30.0); CHLORIDE 104.9 mmol/L (98-107); CREATININE 0.71 mg/dL (0.60-1.30); GLUCOSE 119.1 mg/dL (74-106); POTASSIUM 4.12 mmol/L (3.5-5.1); SODIUM 139.3 mmol/L (134.5-145); TOTAL PROTEIN 6.65 g/dL (6.3-8.2)
[2024-06-08] MEDS: MOBIC PO SCH (08:05)
[2024-06-08] MEDS: MICRO-K CAP PO SCH (08:06)
[2024-06-08] MEDS: CYMBALTA PO SCH (08:07)
[2024-06-08] MEDS: PROTONIX PO SCH (08:07)
[2024-06-08] MEDS ORDERED: FLONASE NAS SCH (09:00)
[2024-06-08] MEDS ORDERED: [UNRECOGNIZED DRUG - OTHER] IH SCH (09:00)
[2024-06-08] MEDS ORDERED: FLUTICASONE FUROATE IH SCH (09:00)
--- NOTE | 2024-06-08 09:30 | PCM.PROG ---
Date/Time Seen Date Seen by Provider: 06/08/24 Time Seen by Provider: 08:15 Provider Provider: CLARISSE PRADO MD, [facility] Chief Complaint Chief Complaint: ACUTE HYPOXEMIC RESP FAILURE,SEPSIS,BILATREAL Subjective Subjective: Reports not feeling any better today. Coughing up sputum actively with provider at bedside. Objective Appearance: Positive No Apparent Distress, Alert and Oriented x3, Ill-Appearing and Obese Chest/Lungs: Positive Symmetrical With Equal Breath Sounds and Clear to Auscultation Bilaterally (diminished) Heart: Positive RRR and Pulses Normal GI/: Positive Soft, Nontender, Bowel Sounds Normal and No Distention Musculoskeletal: Positive Not Examined Neurological: Positive Sensation Intact, Motor intact, Alert, Oriented and Muscle Strength 5/5 in Upper and Lower Extremities Bilaterally Vital Signs Vital Signs: Vital Signs: Last 24 Hours 06/07/24 11:31 06/07/24 12:14 06/07/24 13:31 Temperature 99.2 F Temperature Source Oral Pulse Rate 115 H 104 H Pulse Rate [Apical] Respiratory Rate 17 18 Blood Pressure 130/79 135/77 Blood Pressure Mean Blood Pressure Left Arm Blood Pressure Location Blood Pressure Position O2 Sat by Pulse Oximetry 97 95 Oxygen Delivery Method Oxygen Flow Rate 2 2 Height 5 ft 2 in Weight 133.8 kg Telemetry Type Telemetry Monitoring Telemetry Heart Rate EKG GA Interval EKG QRS Interval Telemetry Strip Reading 06/07/24 16:15 06/07/24 16:22 06/07/24 17:00 Temperature 98.6 F Temperature Source Temporal Artery Scan Pulse Rate 89 Pulse Rate [Apical] Respiratory Rate 19 Blood Pressure Blood Pressure Mean Blood Pressure Left Arm 147/87 Blood Pressure Location Blood Pressure Position Supine O2 Sat by Pulse Oximetry 90 L Oxygen Delivery Method Nasal Cannula Nasal Cannula Nasal Cannula Oxygen Flow Rate 2 2 Height 5 ft 2 in Weight 136.1 kg Telemetry Type Telemetry Monitoring Telemetry Heart Rate EKG GA Interval EKG QRS Interval Telemetry Strip [place] 06/07/24 18:00 06/07/24 18:00 06/07/24 19:00 Temperature 97.8 F Temperature Source Temporal Artery Scan Pulse Rate 80 Pulse Rate [Apical] Respiratory Rate Blood Pressure Blood Pressure Mean Blood Pressure Left Arm Blood Pressure Location Blood Pressure Position O2 Sat by Pulse Oximetry Oxygen Delivery Method Nasal Cannula Nasal Cannula Oxygen Flow Rate Height Weight Telemetry Type Telemetry Monitoring Telemetry Heart Rate EKG GA Interval EKG QRS Interval Telemetry Strip Reading refused 06/07/24 19:00 06/07/24 20:00 06/07/24 20:00 Temperature Temperature Source Pulse Rate Pulse Rate [Apical] Respiratory Rate Blood Pressure Blood Pressure Mean Blood Pressure Left Arm Blood Pressure Location Blood Pressure Position O2 Sat by Pulse Oximetry Oxygen Delivery Method Nasal Cannula Nasal Cannula Nasal Cannula Oxygen Flow Rate 2 Height Weight Telemetry Type Telemetry Monitoring Telemetry Heart Rate EKG GA Interval EKG QRS Interval Telemetry Strip Reading 06/07/24 21:00 06/07/24 21:14 06/07/24 22:00 Temperature 97.9 F Temperature Source Oral Pulse Rate 82 Pulse Rate [Apical] Respiratory Rate 18 Blood Pressure 116/75 Blood Pressure Mean 88 Blood Pressure Left Arm Blood Pressure Location Left Radial Artery Blood Pressure Position Supine O2 Sat by Pulse Oximetry 94 L Oxygen Delivery Method Nasal Cannula Nasal Cannula Nasal Cannula Oxygen Flow Rate 2 Height Weight Telemetry Type Telemetry Monitoring Telemetry Heart Rate EKG GA Interval EKG QRS Interval Telemetry Strip Reading 06/07/24 22:00 06/07/24 23:00 06/07/24 23:35 Temperature Temperature Source Pulse Rate Pulse Rate [Apical] Respiratory Rate Blood Pressure Blood Pressure Mean Blood Pressure Left Arm Blood Pressure Location Blood Pressure Position O2 Sat by Pulse Oximetry 96 Oxygen Delivery Method Nasal Cannula Nasal Cannula Nasal Cannula Oxygen Flow Rate 2 Height Weight Telemetry Type Telemetry Monitoring Telemetry Heart Rate EKG GA Interval EKG QRS Interval Telemetry Strip Reading 06/08/24 00:00 06/08/24 01:00 06/08/24 01:00 Temperature Temperature Source Pulse Rate Pulse Rate [Apical] Respiratory Rate Blood Pressure Blood Pressure Mean Blood Pressure Left Arm Blood Pressure Location Blood Pressure Position O2 Sat by Pulse Oximetry Oxygen Delivery Method Nasal Cannula Nasal Cannula Oxygen Flow Rate Height Weight Telemetry Type Remote Telemetry Telemetry Monitoring Continues Telemetry Heart Rate 94 EKG GA Interval 0.13 EKG QRS Interval 0.06 Telemetry Strip Reading SR 06/08/24 02:00 06/08/24 03:00 06/08/24 04:00 Temperature Temperature Source Pulse Rate Pulse Rate [Apical] Respiratory Rate Blood Pressure Blood Pressure Mean Blood Pressure Left Arm Blood Pressure Location Blood Pressure Position O2 Sat by Pulse Oximetry Oxygen Delivery Method Nasal Cannula Nasal Cannula Nasal Cannula Oxygen Flow Rate Height Weight Telemetry Type Telemetry Monitoring Telemetry Heart Rate EKG GA Interval EKG QRS Interval Telemetry Strip [place] 06/08/24 05:00 06/08/24 05:05 06/08/24 05:11 Temperature 97.9 F Temperature Source Temporal Artery Scan Pulse Rate 93 Pulse Rate [Apical] Respiratory Rate Blood Pressure 160/89 H Blood Pressure Mean 112 Blood Pressure Left Arm Blood Pressure Location Left Arm Blood Pressure Position Sitting O2 Sat by Pulse Oximetry 97 Oxygen Delivery Method Nasal Cannula Nasal Cannula Nasal Cannula Oxygen Flow Rate 2 2 Height Weight Telemetry Type Telemetry Monitoring Telemetry Heart Rate EKG GA Interval EKG QRS Interval Telemetry Strip Reading 06/08/24 06:00 06/08/24 07:00 06/08/24 07:00 Temperature Temperature Source Pulse Rate Pulse Rate [Apical] Respiratory Rate Blood Pressure Blood Pressure Mean Blood Pressure Left Arm Blood Pressure Location Blood Pressure Position O2 Sat by Pulse Oximetry Oxygen Delivery Method Nasal Cannula Nasal Cannula Oxygen Flow Rate Height Weight Telemetry Type Remote Telemetry Telemetry Monitoring Continues Telemetry Heart Rate 89 EKG GA Interval 0.16 EKG QRS Interval 0.06 Telemetry Strip Reading sr 06/08/24 08:00 06/08/24 08:00 06/08/24 09:00 Temperature Temperature Source Pulse Rate Pulse Rate [Apical] 90 Respiratory Rate 18 Blood Pressure Blood Pressure Mean Blood Pressure Left Arm Blood Pressure Location Blood Pressure Position O2 Sat by Pulse Oximetry Oxygen Delivery Method Nasal Cannula Nasal Cannula Nasal Cannula Oxygen Flow Rate 2 Height Weight Telemetry Type Telemetry Monitoring Telemetry Heart Rate EKG GA Interval EKG QRS Interval Telemetry Strip Reading Lab Results Lab Results: Lab Results: Last 24 Hours 06/08/24 06/07/24 06/07/24 05:22 13:15 12:28 WBC 14.98 H RBC 3.93 L Hgb 10.4 L Hct 34.9 L MCV 88.8 MCH 26.5 L MCHC 29.8 L RDW Coeff of Earnestine 15.3 H Plt Count 293 Immature Gran % (Auto) 0.6 Neut % (Auto) 90.7 H Lymph % (Auto) 5.9 L [place] % (Auto) 2.7 Eos % (Auto) 0.0 Baso % (Auto) 0.1 Neut # (Auto) 13.6 H Lymph # (Auto) 0.9 [place] # (Auto) 0.4 Eos # (Auto) 0.0 Baso # (Auto) 0.0 Immature Gran # (Auto) 0.1 ESR PT INR VBG pH 7.43 H VBG pCO2 41 VBG pO2 27 L VBG HCO3 27.2 H VBG O2 Saturation 52.7 L Sodium 139.3 Potassium 4.12 Chloride 104.9 Carbon Dioxide 26.2 Anion Gap 12.32 BUN 13.0 Creatinine 0.71 Estimated GFR (MDRD) 84.00 BUN/Creatinine Ratio 18.30 Glucose 119.1 H Lactic Acid Calcium 8.58 Total Bilirubin 0.62 AST 51.3 H ALT 35.0 Alkaline Phosphatase 95.9 Troponin I C-Reactive Prot, Quant Total Protein 6.65 Albumin 3.99 Globulin 2.66 Albumin/Globulin Ratio 1.50 Procalcitonin D-Dimer Urine Color Yellow Urine Clarity Clear Urine pH 5.5 Ur Specific [place] >=1.030 Urine Protein Negative Urine Glucose (UA) Negative Urine Ketones Negative Urine Blood Negative Urine Nitrite Negative Urine Bilirubin Negative Urine Urobilinogen 0.2 Ur Leukocyte Esterase Negative Influ A Molecular Assay Influ B Molecular Assay RSV Antigen SARS CoV-2 RNA Rapid ADENIKE 06/07/24 06/07/24 12:10 12:07 WBC 15.10 H RBC 3.83 L Hgb 10.0 L Hct 33.7 L MCV 88.0 MCH 26.1 L MCHC 29.7 L RDW Coeff of [place] 15.3 H Plt Count 265 Immature Gran % (Auto) 0.7 Neut % (Auto) 90.1 H Lymph % (Auto) 3.8 L [place] % (Auto) 4.5 Eos % (Auto) 0.8 Baso % (Auto) 0.1 Neut # (Auto) 13.6 H Lymph # (Auto) 0.6 [place] # (Auto) 0.7 Eos # (Auto) 0.1 Baso # (Auto) 0.0 Immature Gran # (Auto) 0.1 ESR 16 PT 10.1 INR 0.97 VBG pH VBG pCO2 VBG pO2 VBG HCO3 VBG O2 Saturation Sodium 140.1 Potassium 4.80 Chloride 105.4 Carbon Dioxide 26.6 Anion Gap 12.90 BUN 16.4 Creatinine 0.83 Estimated GFR (MDRD) 70.00 BUN/Creatinine Ratio 19.75 Glucose 114.2 H Lactic Acid 1.67 Calcium 8.31 L Total Bilirubin 0.49 AST 48.3 H ALT 33.5 Alkaline Phosphatase 90.7 Troponin I < 0.012 C-Reactive Prot, Quant 96 H Total Protein 6.15 L Albumin 3.70 Globulin 2.45 Albumin/Globulin Ratio 1.51 Procalcitonin 0.08 D-Dimer 1550.07 H Urine Color Urine Clarity Urine pH Ur Specific [place] Urine Protein Urine Glucose (UA) Urine Ketones Urine Blood Urine Nitrite Urine Bilirubin Urine Urobilinogen Ur Leukocyte Esterase Influ A Molecular Assay Negative by naat Influ B Molecular Assay Negative by naat RSV Antigen Negative by naat SARS CoV-2 RNA Rapid ADENIKE Negative Additional Comments Additional Comments: I have independently reviewed and interpreted the labs/EKGs/imaging ordered during this hospital stay. I have reviewed outside records that are available in our EMR that pertain to medical stay including imaging/notes/labs from previous visits. Active Medications Active Medications: Medications Generic Name Dose Route Start Last Admin Trade Name Freq PRN Reason Stop Dose Admin Acetaminophen 650 mg 06/07/24 15:14 Acetaminophen 325 Mg Tablet PO Q4-6H PRN Mild/Moderate Pain Albuterol Sulfate 2.5 mg 06/07/24 15:14 Albuterol Sulfate 0.083% Vial.Neb NEB RTQ4H PRN Wheezing Albuterol/Ipratropium 3 ml 06/07/24 18:00 06/08/24 05:06 Ipratropium/Albuterol Vial.Neb NEB 3 ml RTQ6H HELENA Administration Bumetanide 1 mg 06/08/24 06:00 06/08/24 05:39 Bumetanide 1 Mg Tablet PO 1 mg 0600,1200 HELENA Administration Buspirone HCl 10 mg 06/07/24 21:00 06/08/24 08:12 Buspirone Hcl 10 Mg Tablet PO 10 mg TID HELENA Administration Duloxetine HCl 60 mg 06/08/24 09:00 06/08/24 08:07 Duloxetine Hcl 30 Mg Capsule. PO 60 mg DAILY HELENA Administration Ferrous Sulfate 324 mg 06/07/24 21:00 06/07/24 21:13 Ferrous Sulfate 324 Mg Tablet. PO 324 mg BEDTIME HELENA Administration Fluticasone Propionate 1 spray 06/08/24 21:00 Fluticasone Propionate 16 Gm Nasal [place] TOY BEDTIME HELENA Gabapentin 800 mg 06/07/24 21:00 06/08/24 08:04 Gabapentin 100 Mg Capsule PO 800 mg QID HELENA Administration VANCOMYCIN/WATER FOR INJ (PEG) 1.5 gm in 300 mls @ 200 mls/hr 06/07/24 23:00 06/07/24 22:12 Vancomycin 1.5 Gram/300 Ml Premix IV 06/10/24 22:59 200 mls/hr Q12HR HELENA Administration CEFEPIME 2 GM/D5W 2 gm in 50 mls @ 100 mls/hr 06/07/24 21:00 06/08/24 05:38 Maxipime 2 Gm/50 Ml D5w IV 06/10/24 20:59 100 mls/hr Q8HR HELENA Administration Lidocaine 1 applic 06/07/24 19:14 Lidocaine Ointment 5% TP Q24H PRN Pain Loratadine 10 mg 06/07/24 21:00 06/08/24 08:07 Loratadine 10 Mg Tablet PO 10 mg BID HELENA Administration Losartan Potassium 25 mg 06/07/24 21:00 06/07/24 21:12 Losartan Potassium 25 Mg Tablet PO 25 mg BEDTIME HELENA Administration Meloxicam 7.5 mg 06/08/24 09:00 06/08/24 08:05 Meloxicam 7.5 Mg Tablet PO 7.5 mg QAM HELENA Administration Montelukast Sodium 10 mg 06/07/24 21:00 06/07/24 21:13 Montelukast Sodium 10 Mg Tablet PO 10 mg BEDTIME HELENA Administration Non-Formulary Medication 800 mg 06/07/24 21:00 Metaxalone PO BID HELENA Non-Formulary Medication 150 mg 06/07/24 21:00 Bupropion Hcl (Smoking Deter) PO TID HELENA Non-Formulary Medication 2 inh 06/08/24 09:00 Fluticasone Furoate [Arnuity Ellipta] IH DAILY [facility] Nystatin 1 applic 06/07/24 19:14 Nystatin 15 Gm Powder TP BID PRN yeast Oxycodone/Acetaminophen 1 tab 06/07/24 19:14 Oxycodone/Acetaminophen 5/325 Mg Tablet PO TID PRN Pain Pantoprazole Sodium 40 mg 06/08/24 09:00 06/08/24 08:07 Pantoprazole Sodium 40 Mg Tablet.Dr PO 40 mg QAM HELENA Administration Potassium Chloride 20 meq 06/08/24 09:00 06/08/24 08:06 Potassium Chloride 10 Meq Capsule.Er PO 20 meq DAILY HELENA Administration Quetiapine Fumarate 75 mg 06/07/24 21:00 06/07/24 21:13 Quetiapine Fumarate 25 Mg Tablet PO 75 mg BEDTIME HELENA Administration Saccharomyces Boulardii 250 mg 06/08/24 07:45 Saccharomyces Boulardii 250 Mg Capsule PO BID HELENA Sodium Chloride 1 syr 06/07/24 11:36 0.9% Sodium Chloride 10 Ml Disp.Syrin IVF PRN PRN To flush IV Zolpidem Tartrate 10 mg 06/07/24 21:34 06/07/24 22:11 Zolpidem Tartrate 5 Mg Tablet PO 10 mg BEDTIME PRN Administration Insomnia Plan Plan: 1. Sepsis in setting of CAP - Blood cultures pending, vancomycin and cefepime abx coverage 2. Acute Hypoxic Respiratory Failure in setting of CAP - wean oxygen as tolerated, nebs Q6H and prn 3. Bilateral Community Acquired Pneumonia - vanc and cefepime, sputum, MRSA, legionella, and strep pneumo pending 4. Hypertension - chronic, continue home medications 5. CHF - chronic, appears euvolemic, continue bumex bid 6. Anxiety/Depression - chronic, continue home medications DVT Prophylaxis: Ambulation Review Statement Review Statement: I have personally discussed and reviewed the patient's visit/currently labs/imaging/decision making with Dr. Prado, my supervising attending. Greater that 50 minutes spent with patient, 50% of the time spent with this patient was devoted to counseling and coordination of care.
[2024-06-08] MEDS: FLORASTOR PO SCH (10:00)
[2024-06-08] MEDS: TYLENOL PO PRN (10:04)
[2024-06-08] MEDS: METAXALONE 800 MG PO SCH (10:47)
[2024-06-08] MEDS ORDERED: LIDODERM 5 % PATCH TP PRN (10:59)
[2024-06-08] MEDS: FLOVENT HFA 220 MCG IH SCH (11:58)
[2024-06-08] MEDS: NEURONTIN PO SCH ×2 (12:00)
[2024-06-08] MEDS: WELLBUTRIN PO SCH (12:01)
[2024-06-08] MEDS: PERCOCET 5-325 PO PRN (13:56)
[2024-06-08] MEDS: FLONASE NAS SCH (20:45)
[2024-06-09] MEDS: MOBIC PO SCH (08:36)
[2024-06-09] MEDS: MICRO-K CAP PO SCH (08:36)
[2024-06-09 08:52] LABS: BASOPHILS % (AUTO) 0.4 % (0.0-3.0); EOSINOPHILS # (AUTO) 0.3 K/ul (0.0-0.7); EOSINOPHILS % (AUTO) 4.4 % (0.0-7.0); HEMATOCRIT 35.9 % (37.0-47.0); HEMOGLOBIN 10.6 g/dl (12.0-16.0); IMMATURE GRANULOCYTE % (AUTO) 0.4 % (0.0-5.0); LYMPHOCYTES # (AUTO) 0.7 K/uL (0.60-3.4); LYMPHOCYTES % (AUTO) 9.5 (10.0-50.0); MEAN CORPUSCULAR HEMOGLOBIN 26.5 pg (27.0-31.0); MEAN CORPUSCULAR HGB CONC 29.5 (31.8-35.4); MEAN CORPUSCULAR VOLUME 89.8 fl (81.0-99.0); MONOCYTES # (AUTO) 0.5 K/uL (0.4-2.0); MONOCYTES % (AUTO) 7.2 (0-10); NEUTROPHILS # (AUTO) 5.5 K/ul (2.0-6.9); NEUTROPHILS % (AUTO) 78.1 % (42.2-75.2); PLATELET COUNT 297 10^3/uL (140-440); RDW COEFFICIENT OF VARIATION 15.6 % (11.6-14.8); WHITE BLOOD COUNT 7.08 K/ul (4.6-10.2)
[2024-06-09 09:26] LABS: ALANINE AMINOTRANSFERASE 33.2 U/L (0-35); ALBUMIN 3.88 g/dL (3.5-5.0); ALKALINE PHOSPHATASE 86.7 U/L (53-141); ASPARTATE AMINO TRANSFERASE 36.6 U/L (14-36); BILIRUBIN,TOTAL 0.49 mg/dL (0.2-1.3); BLOOD UREA NITROGEN 16.1 mg/dL (7-17); CALCIUM 8.45 mg/dL (8.4-10.2); CARBON DIOXIDE 28.4 mmol/L (22-30.0); CHLORIDE 103.2 mmol/L (98-107); CREATININE 0.97 mg/dL (0.60-1.30); GLUCOSE 98.7 mg/dL (74-106); POTASSIUM 3.58 mmol/L (3.5-5.1); SODIUM 141.7 mmol/L (134.5-145); TOTAL PROTEIN 6.59 g/dL (6.3-8.2)
[2024-06-09] MEDS ORDERED: ZOFRAN 4 MG/2 ML IVP PRN (10:22)
--- NOTE | 2024-06-09 10:26 | PCM.PROG ---
Date/Time Seen Date Seen by Provider: 06/09/24 Time Seen by Provider: 08:40 Provider Provider: CLARIS[facility]O [facility] Chief Complaint Chief Complaint: ACUTE HYPOXEMIC RESP FAILURE,SEPSIS,BILATREAL Subjective Subjective: Reports no improvement. Nauseated and coughing up sputum this am. Attempted weaning to RA and failed. Sat remaining 88-89%. Objective Appearance: Positive No Apparent Distress and Alert and Oriented x3 Chest/Lungs: Positive Symmetrical With Equal Breath Sounds and Clear to Auscultation Bilaterally (diminished) Heart: Positive RRR and Pulses Normal GI/: Positive Soft, Nontender, Bowel Sounds Normal and No Distention Musculoskeletal: Positive Not Examined Neurological: Positive Sensation Intact, Motor intact, Alert and Oriented Vital Signs Vital Signs: Vital Signs: Last 24 Hours 06/08/24 10:54 06/08/24 12:00 06/08/24 13:00 Temperature Temperature Source Pulse Rate Respiratory Rate Blood Pressure Blood Pressure Mean Blood Pressure Location Blood Pressure Position O2 Sat by Pulse Oximetry Oxygen Delivery Method Room Air Room Air Room Air Oxygen Flow Rate Telemetry Type Telemetry Monitoring Telemetry Heart Rate EKG AZ Interval EKG QRS Interval Telemetry Strip Reading 06/08/24 13:00 06/08/24 14:00 06/08/24 14:00 Temperature 97.5 F L Temperature Source Temporal Artery Scan Pulse Rate 89 Respiratory Rate 16 Blood Pressure 136/74 Blood Pressure Mean 94 Blood Pressure Location Left Arm Blood Pressure Position Sitting O2 Sat by Pulse Oximetry 95 Oxygen Delivery Method Nasal Cannula Nasal Cannula Oxygen Flow Rate 2 Telemetry Type Remote Telemetry Telemetry Monitoring Continues Telemetry Heart Rate 97 EKG AZ Interval 0.15 EKG QRS Interval 0.07 Telemetry Strip Reading sr 06/08/24 14:00 06/08/24 15:00 06/08/24 16:00 Temperature Temperature Source Pulse Rate Respiratory Rate Blood Pressure Blood Pressure Mean Blood Pressure Location Blood Pressure Position O2 Sat by Pulse Oximetry Oxygen Delivery Method Nasal Cannula Nasal Cannula Nasal Cannula Oxygen Flow Rate 2 Telemetry Type Telemetry Monitoring Telemetry Heart Rate EKG AZ Interval EKG QRS Interval Telemetry Strip Reading 06/08/24 16:36 06/08/24 18:00 06/08/24 18:00 Temperature 97.2 F L Temperature Source Oral Pulse Rate 100 Respiratory Rate 20 Blood Pressure 139/86 Blood Pressure Mean 103 Blood Pressure Location Blood Pressure Position O2 Sat by Pulse Oximetry 96 Oxygen Delivery Method Nasal Cannula Nasal Cannula Nasal Cannula Oxygen Flow Rate 2 Telemetry Type Telemetry Monitoring Telemetry Heart Rate EKG AZ Interval EKG QRS Interval Telemetry Strip Reading 06/08/24 19:00 06/08/24 19:00 06/08/24 20:00 Temperature Temperature Source Pulse Rate Respiratory Rate Blood Pressure Blood Pressure Mean Blood Pressure Location Blood Pressure Position O2 Sat by Pulse Oximetry Oxygen Delivery Method Nasal Cannula Nasal Cannula Oxygen Flow Rate Telemetry Type Remote Telemetry Telemetry Monitoring Continues Telemetry Heart Rate 87 EKG AZ Interval 0.19 EKG QRS Interval 0.07 Telemetry Strip Reading SR 06/08/24 20:00 06/08/24 20:00 06/08/24 21:00 Temperature Temperature Source Pulse Rate Respiratory Rate Blood Pressure Blood Pressure Mean Blood Pressure Location Blood Pressure Position O2 Sat by Pulse Oximetry 96 Oxygen Delivery Method Nasal Cannula Nasal Cannula Nasal Cannula Oxygen Flow Rate 2 2 Telemetry Type Telemetry Monitoring Telemetry Heart Rate EKG AZ Interval EKG QRS Interval Telemetry Strip Reading 06/08/24 21:11 06/08/24 22:00 06/08/24 23:00 Temperature 98 F Temperature Source Temporal Artery Scan Pulse Rate 84 Respiratory Rate 16 Blood Pressure 121/79 Blood Pressure Mean 93 Blood Pressure Location Left Arm Blood Pressure Position Supine O2 Sat by Pulse Oximetry 95 Oxygen Delivery Method Nasal Cannula Nasal Cannula Nasal Cannula Oxygen Flow Rate 2 Telemetry Type Telemetry Monitoring Telemetry Heart Rate EKG AZ Interval EKG QRS Interval Telemetry Strip Reading 06/09/24 00:00 06/09/24 00:30 06/09/24 01:00 Temperature Temperature Source Pulse Rate Respiratory Rate Blood Pressure Blood Pressure Mean Blood Pressure Location Blood Pressure Position O2 Sat by Pulse Oximetry Oxygen Delivery Method Nasal Cannula Nasal Cannula Oxygen Flow Rate Telemetry Type Remote Telemetry Telemetry Monitoring Continues Telemetry Heart Rate 86 EKG AZ Interval 0.12 EKG QRS Interval 0.04 L Telemetry Strip Reading SR 06/09/24 01:35 06/09/24 02:00 06/09/24 03:00 Temperature Temperature Source Pulse Rate 89 Respiratory Rate 18 Blood Pressure Blood Pressure Mean Blood Pressure Location Blood Pressure Position O2 Sat by Pulse Oximetry 97 Oxygen Delivery Method Nasal Cannula Nasal Cannula Nasal Cannula Oxygen Flow Rate 1 Telemetry Type Telemetry Monitoring Telemetry Heart Rate EKG AZ Interval EKG QRS Interval Telemetry Strip Reading 06/09/24 04:00 06/09/24 05:00 06/09/24 05:24 Temperature 97.7 F Temperature Source Temporal Artery Scan Pulse Rate 87 Respiratory Rate 18 Blood Pressure 135/84 Blood Pressure Mean 101 Blood Pressure Location Left Arm Blood Pressure Position Supine O2 Sat by Pulse Oximetry 97 Oxygen Delivery Method Nasal Cannula Nasal Cannula Nasal Cannula Oxygen Flow Rate 2 Telemetry Type Telemetry Monitoring Telemetry Heart Rate EKG AZ Interval EKG QRS Interval Telemetry Strip Reading 06/09/24 05:25 06/09/24 06:00 06/09/24 06:58 Temperature Temperature Source Pulse Rate Respiratory Rate Blood Pressure Blood Pressure Mean Blood Pressure Location Blood Pressure Position O2 Sat by Pulse Oximetry 98 Oxygen Delivery Method Nasal Cannula Nasal Cannula Nasal Cannula Oxygen Flow Rate 1 Telemetry Type Telemetry Monitoring Telemetry Heart Rate EKG AZ Interval EKG QRS Interval Telemetry Strip Reading 06/09/24 07:00 06/09/24 08:00 06/09/24 09:00 Temperature Temperature Source Pulse Rate Respiratory Rate Blood Pressure Blood Pressure Mean Blood Pressure Location Blood Pressure Position O2 Sat by Pulse Oximetry Oxygen Delivery Method Nasal Cannula Nasal Cannula Oxygen Flow Rate Telemetry Type Remote Telemetry Telemetry Monitoring Continues Telemetry Heart Rate 89 EKG AZ Interval 0.14 EKG QRS Interval 0.05 L Telemetry Strip Reading SR 06/09/24 10:00 Temperature Temperature Source Pulse Rate Respiratory Rate Blood Pressure Blood Pressure Mean Blood Pressure Location Blood Pressure Position O2 Sat by Pulse Oximetry Oxygen Delivery Method Nasal Cannula Oxygen Flow Rate Telemetry Type Telemetry Monitoring Telemetry Heart Rate EKG AZ Interval EKG QRS Interval Telemetry Strip Reading Lab Results Lab Results: Lab Results: Last 24 Hours 06/09/24 08:46 WBC 7.08 D RBC 4.00 L Hgb 10.6 L Hct 35.9 L MCV 89.8 MCH 26.5 L MCHC 29.5 L RDW Coeff of Earnestine 15.6 H Plt Count 297 Immature Gran % (Auto) 0.4 Neut % (Auto) 78.1 H Lymph % (Auto) 9.5 L [place] % (Auto) 7.2 Eos % (Auto) 4.4 Baso % (Auto) 0.4 Neut # (Auto) 5.5 Lymph # (Auto) 0.7 [place] # (Auto) 0.5 Eos # (Auto) 0.3 Baso # (Auto) 0.0 Immature Gran # (Auto) 0.0 Sodium 141.7 Potassium 3.58 Chloride 103.2 Carbon Dioxide 28.4 Anion Gap 13.68 BUN 16.1 Creatinine 0.97 Estimated GFR (MDRD) 59.00 BUN/Creatinine Ratio 16.59 Glucose 98.7 Calcium 8.45 Total Bilirubin 0.49 AST 36.6 H ALT 33.2 Alkaline Phosphatase 86.7 Total Protein 6.59 Albumin 3.88 Globulin 2.71 Albumin/Globulin Ratio 1.43 Vancomycin Trough 20.184 H Additional Comments Additional Comments: I have independently reviewed and interpreted the labs/EKGs/imaging ordered during this hospital stay. I have reviewed outside records that are available in our EMR that pertain to medical stay including imaging/notes/labs from previous visits. Active Medications Active Medications: Medications Generic Name Dose Route Start Last Admin Trade Name Freq PRN Reason Stop Dose Admin Acetaminophen 650 mg 06/07/24 15:14 06/08/24 10:04 Acetaminophen 325 Mg Tablet PO 650 mg Q4-6H PRN Administration Mild/Moderate Pain Albuterol Sulfate 2.5 mg 06/07/24 15:14 Albuterol Sulfate 0.083% Vial.Neb NEB RTQ4H PRN Wheezing Albuterol/Ipratropium 3 ml 06/07/24 18:00 06/09/24 05:16 Ipratropium/Albuterol Vial.Neb NEB 3 ml RTQ6H HELENA Administration Bumetanide 1 mg 06/08/24 06:00 06/09/24 05:02 Bumetanide 1 Mg Tablet PO 1 mg 0600,1200 HELENA Administration Bupropion HCl 150 mg 06/08/24 11:00 06/09/24 08:35 Bupropion Hcl 75 Mg Tablet PO 150 mg TID HELENA Administration Buspirone HCl 10 mg 06/07/24 21:00 06/09/24 08:35 Buspirone Hcl 10 Mg Tablet PO 10 mg TID HELENA Administration Cyclobenzaprine HCl 5 mg 06/08/24 10:43 Cyclobenzaprine Hcl 10 Mg Tablet PO BID PRN MUSCLE SPASMS Duloxetine HCl 60 mg 06/08/24 09:00 06/09/24 08:35 Duloxetine Hcl 30 Mg Capsule. PO 60 mg DAILY HELENA Administration Ferrous Sulfate 324 mg 06/07/24 21:00 06/08/24 20:47 Ferrous Sulfate 324 Mg Tablet. PO 324 mg BEDTIME HELENA Administration Fluticasone Propionate 1 spray 06/08/24 21:00 06/08/24 20:45 Fluticasone Propionate 16 Gm Nasal [place] TOY 1 spray BEDTIME HELENA Administration Fluticasone Propionate 2 puff 06/08/24 11:00 06/09/24 08:37 Fluticasone Propionate 220 Mcg Inh IH 2 puff BID HELENA Administration Gabapentin 600 mg 06/08/24 13:00 06/09/24 08:35 Gabapentin 300 Mg Capsule PO 600 mg QID HELENA Administration Gabapentin 200 mg 06/08/24 13:00 06/09/24 08:35 Gabapentin 100 Mg Capsule PO 200 mg QID HELENA Administration CEFEPIME 2 GM/D5W 2 gm in 50 mls @ 100 mls/hr 06/07/24 21:00 06/09/24 05:02 Maxipime 2 Gm/50 Ml D5w IV 06/10/24 20:59 100 mls/hr Q8HR HELENA Administration Lidocaine 1 patch 06/08/24 10:59 Lidocaine 5% Patch TP Q24H PRN Pain Loratadine 10 mg 06/07/24 21:00 06/09/24 08:34 Loratadine 10 Mg Tablet PO 10 mg BID HELENA Administration Losartan Potassium 25 mg 06/07/24 21:00 06/08/24 20:46 Losartan Potassium 25 Mg Tablet PO 25 mg BEDTIME HELENA Administration Meloxicam 7.5 mg 06/09/24 07:30 06/09/24 08:36 Meloxicam 7.5 Mg Tablet PO 7.5 mg DAILYWM2 HELENA Administration Montelukast Sodium 10 mg 06/07/24 21:00 06/08/24 20:46 Montelukast Sodium 10 Mg Tablet PO 10 mg BEDTIME HELENA Administration Nystatin 1 applic 06/07/24 19:14 Nystatin 15 Gm Powder TP BID PRN yeast Ondansetron HCl 4 mg 06/09/24 10:22 Ondansetron Hcl/Pf 4 Mg/2 Ml Sdv IVP Q6H PRN Nausea / Vomiting Oxycodone/Acetaminophen 1 tab 06/07/24 19:14 06/09/24 08:35 Oxycodone/Acetaminophen 5/325 Mg Tablet PO 1 tab TID PRN Administration Pain Pantoprazole Sodium 40 mg 06/08/24 09:00 06/09/24 08:34 Pantoprazole Sodium 40 Mg Tablet.Dr PO 40 mg QAM HELENA Administration Potassium Chloride 20 meq 06/09/24 07:30 06/09/24 08:36 Potassium Chloride 10 Meq Capsule.Er PO 20 meq DAILYWM2 HELENA Administration Quetiapine Fumarate 75 mg 06/07/24 21:00 06/08/24 20:45 Quetiapine Fumarate 25 Mg Tablet PO 75 mg BEDTIME HELENA Administration Saccharomyces Boulardii 250 mg 06/08/24 07:45 06/09/24 08:34 Saccharomyces Boulardii 250 Mg Capsule PO 250 mg BID HELENA Administration Sodium Chloride 1 syr 06/07/24 11:36 0.9% Sodium Chloride 10 Ml Disp.Syrin IVF PRN PRN To flush IV Zolpidem Tartrate 10 mg 06/07/24 21:34 06/07/24 22:11 Zolpidem Tartrate 5 Mg Tablet PO 10 mg BEDTIME PRN Administration Insomnia Plan Plan: 1. Sepsis in setting of CAP - Ruled out, blood cultures negative x 24 hours, vancomycin stopped - MRSA negative 2. Acute Hypoxic Respiratory Failure in setting of CAP - Improving, requiring 1L, attempted full wean and sat dropped to 88%, wean oxygen as tolerated, nebs Q6H and prn 3. Bilateral Community Acquired Pneumonia - rocephin and azith sputum showing mixed growth, MRSA negative - stopping vanc, legionella, and strep pneumo pending 4. Hypertension - chronic, continue home medications 5. CHF - chronic, appears euvolemic, continue bumex bid 6. Anxiety/Depression - chronic, continue home medications DVT Prophylaxis: Ambulation Review Statement Review Statement: I have personally discussed and reviewed the patient's visit/currently labs/imaging/decision making with Dr. Prado, my supervising attending. Greater that 50 minutes spent with patient, 50% of the time spent with this patient was devoted to counseling and coordination of care.
[2024-06-09] MEDS: ZITHROMAX PO SCH (11:36)
[2024-06-09] MEDS: ROCEPHIN 1 GM/50 ML D5W 1 GM/50 ML BAG IV SCH (11:36)
[2024-06-09 14:37] LABS: SPECIMEN SOURCE Urine (.); STEP PNEUMO ORGANISM ID Not indicated. (.); STREP PNEUMO AG Negative (Negative); STREP PNEUMO BODY FLUID CULT Not indicated. (.)
[2024-06-09] MEDS: FLEXERIL PO PRN (20:56)
[2024-06-10 06:07] LABS: BASOPHILS % (AUTO) 0.6 % (0.0-3.0); EOSINOPHILS # (AUTO) 0.4 K/ul (0.0-0.7); EOSINOPHILS % (AUTO) 7.7 % (0.0-7.0); HEMOGLOBIN 10.8 g/dl (12.0-16.0); IMMATURE GRANULOCYTE % (AUTO) 0.4 % (0.0-5.0); LYMPHOCYTES # (AUTO) 1.2 K/uL (0.60-3.4); LYMPHOCYTES % (AUTO) 25.9 (10.0-50.0); MEAN CORPUSCULAR HEMOGLOBIN 26.2 pg (27.0-31.0); MEAN CORPUSCULAR HGB CONC 29.2 (31.8-35.4); MEAN CORPUSCULAR VOLUME 89.8 fl (81.0-99.0); MONOCYTES # (AUTO) 0.5 K/uL (0.4-2.0); MONOCYTES % (AUTO) 10.7 (0-10); NEUTROPHILS # (AUTO) 2.6 K/ul (2.0-6.9); NEUTROPHILS % (AUTO) 54.7 % (42.2-75.2); PLATELET COUNT 329 10^3/uL (140-440); RDW COEFFICIENT OF VARIATION 15.4 % (11.6-14.8); RED BLOOD COUNT 4.12 10^6/ul (4.20-5.40); WHITE BLOOD COUNT 4.67 K/ul (4.6-10.2)
[2024-06-10 06:26] LABS: ALANINE AMINOTRANSFERASE 32.1 U/L (0-35); ALBUMIN 3.75 g/dL (3.5-5.0); ALKALINE PHOSPHATASE 86.2 U/L (53-141); ASPARTATE AMINO TRANSFERASE 34.3 U/L (14-36); BILIRUBIN,TOTAL 0.34 mg/dL (0.2-1.3); BLOOD UREA NITROGEN 18.1 mg/dL (7-17); CALCIUM 8.26 mg/dL (8.4-10.2); CHLORIDE 101.1 mmol/L (98-107); CREATININE 0.87 mg/dL (0.60-1.30); GLUCOSE 93.7 mg/dL (74-106); POTASSIUM 3.83 mmol/L (3.5-5.1); SODIUM 140.8 mmol/L (134.5-145); TOTAL PROTEIN 6.38 g/dL (6.3-8.2)
[2024-06-10] MEDS: ALBUTEROL 0.083% NEB NEB PRN (11:53)
--- NOTE | 2024-06-10 13:54 | DCSUM ---
Admission Date Admission Date: 06/07/24 Discharge Date Discharge Date: 06/10/24 Admission Diagnosis Admission Diagnosis: 1. Sepsis in setting of CAP 2. Acute Hypoxic Respiratory Failure in setting of CAP 3. Bilateral Community Acquired Pneumonia Discharge Diagnosis Discharge Diagnosis: 1. Sepsis in setting of CAP - Ruled out 2. Acute Hypoxic Respiratory Failure in setting of CAP - Improving 3. Bilateral Community Acquired Pneumonia 4. Hypertension 5. CHF 6. Anxiety/Depression Hospital Provider Hospital Provider: VARINDER KHANNA PA-C, [facility] Primary Care Physician Primary Care Physician: TALHA WOODWARD Summary of History and Physical Summary of History and Physical: 59 yo female presented to the ER with complaints of weakness, fever, cough, and shortness of breath x 3 days. Has pmh of asthma, htn, gerd, anxiety/depression. States that she has had a fever as high as 102 and can't seem to get better. Cough is productive with yellow-brown sputum. SOB is worse on exertion. O2 sat was in upper 80s in ER upon arrival, Placed on 2L and sat upper 90s now. Admitted to med/surg observation for bilateral pneumonia Hospital Course Subjective: Patient initially treated with broad-spectrum antibiotics due to sepsis-like picture. Blood cultures have been negative. Switch to azithromycin and Rocephin. She has improved but continues to require 1 to 2 L of oxygen especially with ambulation. She also complains of some pleurisy type pain. Will discharge on remainder of Augmentin and azithromycin and a Medrol Dosepak. She states that she has inhalers and a nebulizer with medication at home to use as needed. Home O2 set up for her prior to discharge. Encouraged her to follow-up with PCP to trial weaning off the oxygen again. Patient's labs and vitals have been stable. Discharged to home in stable condition. Follow-up tx th PCP within 1 week. Appearance: Pleasant, No Apparent Distress and Alert HEENT: MMM and Supple CVS: No Murmur Abdomen: Soft, Non-Tender and No Distention Respiratory: No Accessory Muscle Use Extremities: No Edema Vital Signs: Most Recent Vital Signs Temperature 98.3 F 06/10/24 10:00 Temperature Source Temporal Artery Scan 06/10/24 10:00 Temperature Source Oral 06/07/24 11:31 Pulse Rate 100 06/10/24 10:00 Respiratory Rate 17 06/10/24 10:00 Blood Pressure 146/84 H 06/10/24 10:00 Blood Pressure Mean 104 06/10/24 10:00 Blood Pressure Left Arm 147/87 06/07/24 16:22 Blood Pressure Location Left Arm 06/10/24 10:00 Blood Pressure Position Supine 06/10/24 10:00 O2 Sat by Pulse Oximetry 95 06/10/24 10:00 Oxygen Delivery Method Room Air 06/10/24 12:00 Oxygen Flow Rate 1 06/10/24 10:00 Height 5 ft 2 in 06/09/24 16:53 Weight 136.1 kg 06/09/24 16:53 Telemetry Type Remote Telemetry 06/10/24 07:00 Telemetry Monitoring Continues 06/10/24 07:00 Telemetry Heart Rate 88 06/10/24 07:00 EKG FL Interval 0.16 06/10/24 07:00 EKG QRS Interval 0.06 06/10/24 07:00 Telemetry Strip Reading sr 06/10/24 07:00 Imaging: EXAM: CHEST ONE-VIEW HISTORY: Shortness of breath COMPARISON: AP chest from 06/07/2021 FINDINGS: The heart size is prominent. The pulmonary vasculature is accentuated there are interstitial and alveolar opacities in the right upper lobe and both lower lobes. No pneumothoraces or pleural effusions. ACDF is noted. IMPRESSION: 1. Multifocal pneumonia versus pulmonary edema. 2. Cardiomegaly. EXAM: CT PULMONARY ANGIOGRAM WITH IV CONTRAST. HISTORY: Shortness of breath with elevated D-dimer. PROCEDURE: After the intravenous injection of contrast a CT pulmonary angiogram was performed with contiguous axial CT images of the chest with multiplaner reformats, MIP images and 3-D reformats. COMPARISON: CT chest of 10/31/2023. FINDINGS: There is motion artifact which limits the exam. There is normal enhancement of the pulmonary trunk, main right and left pulmonary arteries and lobar pulmonary arteries. There is limited visualization of the segmental and subsegmental pulmonary arteries secondary to motion artifact and small peripheral pulmonary emboli cannot be excluded. The heart is enlarged. The thoracic aorta is within normal limits in size. There are diffuse infiltrates and patchy areas of consolidation, consistent with pneumonia. There are degenerative changes in the spine. Impression: No evidence of central pulmonary embolism as described. Limited visualization of the segmental and subsegmental pulmonary arteries secondary to motion artifact and small peripheral pulmonary emboli cannot be excluded. Bilateral pneumonia as described. Cardiomegaly. Lab Results Last 24 Hours: 06/10/24 06/07/24 05:25 13:15 WBC 4.67 RBC 4.12 L Hgb 10.8 L Hct 37.0 MCV 89.8 MCH 26.2 L MCHC 29.2 L RDW Coeff of Earnestine 15.4 H Plt Count 329 Immature Gran % (Auto) 0.4 Neut % (Auto) 54.7 Lymph % (Auto) 25.9 [place] % (Auto) 10.7 H Eos % (Auto) 7.7 H Baso % (Auto) 0.6 Neut # (Auto) 2.6 Lymph # (Auto) 1.2 [place] # (Auto) 0.5 Eos # (Auto) 0.4 Baso # (Auto) 0.0 Immature Gran # (Auto) 0.0 Sodium 140.8 Potassium 3.83 Chloride 101.1 Carbon Dioxide 31.0 H Anion Gap 12.53 BUN 18.1 H Creatinine 0.87 Estimated GFR (MDRD) 66.00 BUN/Creatinine Ratio 20.80 Glucose 93.7 Calcium 8.26 L Total Bilirubin 0.34 AST 34.3 ALT 32.1 Alkaline Phosphatase 86.2 Total Protein 6.38 Albumin 3.75 Globulin 2.63 Albumin/Globulin Ratio 1.42 CSF Strep pneumoniae Ag Not indicated. Staphs Organism ID Not indicated. S. pneumoniae Ag Source Urine S. pneumoniae Ag Intrp Negative Ref Test Please Note Comment Discharge Instructions Discharge Planning: Discharge Planning > [address] Alla Dang. Discharge Medications: Medications at Discharge (Home Meds & RX) Discharge Plan Discharge Discharge Orders: Discharge Patient (ONCE); Ordered 06/10/24 Ordered By: VARINDER KHANNA Activity Restrictions/Additional Instructions: DISCHARGE TO HOME DX: PNEUMONIA, HYPOXIA HOME O2 SET UP, F/U WITH PCP TO CONSIDER WEANING PHARMACY: [facility] DIET: HEART HEALTHY ACTIVITY: TOLERATED Instructions: Community Acquired Pneumonia (GEN) Care Plan Goals: Problem: Impaired Respiratory Status Goal: Exhibit optimal respiratory function Instructions: Activities as tolerated Apply oxygen as ordered Elevate head of bed Notify MD of increased congestion Problem: Impaired Mobility Goal: Demonstrates improved mobility Instructions: Gradually increase activity as tolerated Assistance devices as indicated Notify provider of declines in mobility Patient Disposition: HOME SELF-CARE Prescriptions: New amoxicillin-pot clavulanate 875-125 mg tablet 1 tab PO BID 3 Days Qty: 6 0RF Rx Instructions: STARTING 06/11 azithromycin 250 mg tablet 250 mg PO DAILY 3 Days Qty: 3 0RF Rx Instructions: start ON 06/11 methylprednisolone [Medrol (Zack)] 4 mg tablets,dose pack See Rx Instructions .ROUTE .COMPLEX Qty: 21 0RF Rx Instructions: orally per package directions Continued pantoprazole [Protonix] 40 MG tablet,delayed release (DR/EC) 40 mg PO QAM albuterol sulfate [Proventil HFA] 6.7 GM HFA aerosol inhaler 6.7 g inhalation BID PRN (Reason: WHEEZING /SOB) bupropion HCl (smoking deter) 150 MG tablet extended release 12 hr 150 mg PO TID calcium carbonate-vitamin D3 1 EACH tablet 1 ea PO BID potassium chloride 10 mEq capsule, extended release 20 meq PO DAILY Patient Comments: TAKE 2 CAPSULES BY MOUTH DAILY meloxicam 7.5 mg tablet 7.5 mg PO QAM Patient Comments: TAKE 1 TABLET BY MOUTH DAILY quetiapine 25 mg tablet 75 mg PO BEDTIME oxycodone-acetaminophen 5-325 mg tablet 1 tab PO TID losartan 25 mg tablet 25 mg PO BEDTIME duloxetine 60 mg capsule,delayed release(DR/EC) 60 mg PO DAILY buspirone 10 mg tablet 10 mg PO TID diclofenac sodium 1 % gel 2 g topical QID Qty: 100 0RF Rx Instructions: apply to wrist or hand; for hand includes palm/fingers/back of hand eszopiclone 2 mg tablet 2 mg PO BEDTIME montelukast 10 mg tablet 10 mg PO .HS bumetanide 1 mg tablet 1 mg PO 0600,1200 Arnuity Ellipta 100 mcg/actuation blister with device 2 inh INHALATION DAILY fluticasone propionate 50 mcg/actuation spray,suspension 1 spray INTRANASAL DAILY lidocaine [AsperFlex (lidocaine)] 4 % adhesive patch,medicated 1 patch topical DAILY Rx Instructions: On in PM and OFF in AM ferrous sulfate [Feosol] 325 mg (65 mg iron) tablet 325 mg PO BEDTIME gabapentin 800 mg tablet 800 mg PO QID cranberry extract 200 mg capsule 200 mg PO QAM Rx Instructions: administer with a meal ipratropium-albuterol 0.5 mg-3 mg(2.5 mg base)/3 mL solution for nebulization 3 ml inhalation QID PRN (Reason: shortness of breath or wheezing) metaxalone 800 mg tablet 800 mg PO BID loratadine [Claritin] 10 mg tablet 10 mg PO BID vitamin B complex Tablet 1 tab PO BID nystatin 100,000 unit/gram powder 1 applic topical BID PRN (Reason: redness/itching) Rx Instructions: Apply to umbilicus BID PRN Discontinued bupropion HCl 150 mg tablet sustained-release 12 hr 150 mg PO TID Did you review [place] DEGREASER OPERATOR for ALL controlled substances?: Not Applicable Discussed opioids are addictive and Narcan is available by prescription or from pharmacy.: No Condition: Stable
[2024-06-10 15:19] VITALS: BP 152/87; PULSE 96; RESP 18; TEMP 97.7
== END 2024-06-10 16:30 | disposition home or self-care (01) ==
LOC: MEDSURG B 11:29 → ED 11:29 → MEDSURG B 16:15
PROVIDERS: ADMIT Nurse Practitioner Family; ATTEND Physician Assistant
DX: J96.01 Acute respiratory failure with hypoxia; A41.9 Sepsis, unspecified organism; I10 Essential (primary) hypertension; Z74.3 Need for continuous supervision; F32.A Depression, unspecified; Z99.81 Dependence on supplemental oxygen; J18.9 Pneumonia, unspecified organism; Z51.81 Encounter for therapeutic drug level monitoring; R04.2 Hemoptysis; Z20.822 Contact with and (suspected) exposure to COVID-19; Z79.899 Other long term (current) drug therapy; J44.0 Chronic obstructive pulmonary disease with (acute) lower respiratory infection; E86.0 Dehydration; R79.1 Abnormal coagulation profile; I50.9 Heart failure, unspecified; J44.1 Chronic obstructive pulmonary disease with (acute) exacerbation; F41.9 Anxiety disorder, unspecified